=== PATIENT | female | born 1930 | race American Indian/Alaskan Native ===

== ENCOUNTER 2016-10-20 23:06 | Inpatient (IN) | payer MEDICARE, MEDICAID ==
[2016-10-20 23:07] VITALS: BMI 19.5
--- NOTE | 2016-10-20 23:53 | ED PDOC ---
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 Daughter states patient has a chronic sacral ulcer but notes over the last week, patient's sacral wound has been progressively worsening. Daughter states patient has been passing very dark stools and notes a dark liquid coming from the patient's PEG tube today. Daughter also reports patient has been losing weight since her last hospital admission on 08/20/2016. Limited HPI and ROS due to patient's dementia/end-stage Parkinson's disease. PMD: Dr. Gutierrez Symptom Onset: Gradual Symptom Course: Worsening Activities at Onset: Rest, Light Context: Home Past Medical History - Provider Review Nursing Documentation Reviewed: Yes - Infectious Disease Hx of Infectious Diseases: None - Tetanus Immunization Tetanus Immunization: Unknown - Cardiac Hx Cardiac Arrhythmia: Yes (current; atrial fibrillation.) Hx Congestive Heart Failure: Yes Hx Hypertension: Yes Hx Peripheral Edema: No - Pulmonary Hx Pneumonia: Yes (x3) - Neurological Hx Dementia: Yes Hx Parkinson's Disease: Yes Hx Transient Ischemic Attacks (TIA): Yes - HEENT Hx HEENT Disorder: Yes Hx Cataracts: Yes (lt eye) - Renal Hx Renal Disorder: No - Endocrine/Metabolic Hx Endocrine Disorders: No - Hematological/Oncological Hx Blood Transfusions: Yes Hx Blood Transfusion Reaction: No - Integumentary Hx Dermatological Disorder: No - Musculoskeletal/Rheumatological Hx Fractures: Yes (Left Foot Fx; 2000.) Hx Osteoporosis: Yes - Gastrointestinal Hx Pancreatitis: Yes (current.) - Genitourinary/Gynecological Hx Genitourinary Disorders: Yes Hx Incontinence: Yes - Psychiatric Hx Depression: No Hx Substance Use: No - Surgical History Other/Comment: Feeding tube insertion - Anesthesia Hx Anesthesia Reactions: No Hx Malignant Hyperthermia: No - Suicidal Assessment Feels Threatened In Home Enviroment: No Family/Social History - Physician Review Nursing Documentation Reviewed: Yes Family/Social History: No Known Family HX Smoking Status: Never Smoked Hx Alcohol Use: No Hx Substance Use: No Hx Substance Use Treatment: No Allergies/Home Meds Allergies/Adverse Reactions: Allergies Sulfa (Sulfonamide Antibiotics) Allergy (Verified 08/20/16 20:10) SWELLING Home Medications: Home Meds Medication Instructions Recorded Confirmed Ropinirole HCl [Ropinirole ER] 0.5 mg PEG TID 02/13/13 10/21/16 Aspirin [Jordana Chewable Aspirin] 81 mg PEG DAILY 03/26/13 10/21/16 Baclofen [Lioresal] 10 mg PEG TID 02/14/16 10/21/16 cloNIDine [Catapres] 0.1 mg PO BID 08/15/16 10/21/16 Review of Systems - Review of Systems Systems not reviewed;Unavailable: Dementia Constitutional: Weight Change (+weight loss) Gastrointestinal: Other (+dark, tarry stool) Skin: Ulcer (+worsening sacral ulcer) Physical Exam Vital Signs Reviewed: Yes Vital Signs Temp Pulse Resp BP Pulse Ox 10/21/16 05:18 83 17 138/85 99 10/21/16 03:25 97.7 F 83 12 122/74 100 10/21/16 00:27 89 22 120/38 L 97 Temperature: Afebrile Blood Pressure: Normal Pulse: Regular Respiratory Rate: Normal Appearance: Positive for: Non-Toxic, Cachectic Pain Distress: None Mental Status: Positive for: other (Awake, non-communicative) - Systems Exam Head: Present: Atraumatic, Normocephalic Pupils: Present: PERRL Extroacular Muscles: Present: EOMI Conjunctiva: Present: Normal Mouth: Present: Moist Mucous Membranes Respiratory/Chest: Present: Clear to Auscultation, Good Air Exchange. No: Respiratory Distress, Accessory Muscle Use Cardiovascular: Present: Regular Rate and Rhythm, Normal S1, S2. No: Murmurs Abdomen: Present: Normal Bowel Sounds. No: Tenderness, Distention, Peritoneal Signs Rectal: Present: Hemorrhoids (Small non-thrombosed/non-inflamed hemorrhoid), Other (Guaiac negative) Back: Present: Decubitus Ulcer (Infected cavitated sacral ulcer) Upper Extremity: Present: Other (Severe contraction of extremities). No: Cyanosis, Edema Lower Extremity: Present: Other (Severe contraction of extremities). No: Edema Skin: Present: Warm, Dry, Normal Color. No: Rashes Psychiatric: Present: Other (Awake, non-communicative) Medical Decision Making ED Course and Treatment: 10/20/16 23:52 Impression: 86 year old female brought in for worsening sacral wound, dark stools, and weight loss. Differential Diagnosis include but are not limited to: infected sacral wound vs. sepsis Plan: -- Labs, VBG, blood cultures -- Urinalysis, urine cultures -- Wound culture -- Reassess and disposition Prior Visits: Notes and results from previous visits were reviewed. Progress Notes: 10/21/16 03:[address] Barth, covering for Dr. Gutierrez, who is aware and agrees with plan. Pt will be admitted to [facility] for infected sacral decubitus and cellulitis under Dr. Gutierrez' service. Requets Dr. Choudhury and Dr. Chaudhry on consult. - Lab Interpretations Lab Results: 10/21/16 02:40 10/21/16 02:40 Lab Results 10/21/16 02:40: WBC 4.6 D, RBC 2.88 L, Hgb 8.5 L, Hct 26.8 L, MCV 93.1, MCH 29.5, MCHC 31.7, RDW 15.2 H, Plt Count 351, MPV 10.2, pO2 67 H, VBG pH 7.45 H, VBG pCO2 38.0 L, VBG HCO3 26.4, VBG Total CO2 27.6, VBG O2 Sat (Calc) 96.5 H, VBG Base Excess 2.4 H, VBG Potassium 4.2, Glucose 77, Lactate 1.2, FiO2 21.0, Sodium 144.0, Potassium 4.1, Chloride 119.0 H, Carbon Dioxide 25, Anion Gap 13, BUN 20, Creatinine 0.5, Est GFR ( Amer) > 60, Est GFR (Non-Af Amer) > 60 , Random Glucose 76, Calcium 8.9, Total Bilirubin 0.3, AST 21, ALT 24, Alkaline Phosphatase 68, Total Protein 7.1, Albumin 2.9 L, Globulin 4.2, Albumin/ Globulin Ratio 0.7 L, Venous Blood Potassium 4.2 I have reviewed the lab results: Yes - Medication Orders Current Medication Orders: Aspirin (Aspirin Chewable) 81 mg PEG DAILY [facility] Last Admin: 10/21/16 10:00 Dose: 81 MG Baclofen (Lioresal) 10 mg NG TID [facility] Last Admin: 10/21/16 17:45 Dose: 10 MG Clonidine HCl (Catapres) 0.1 mg PO BID [facility] Last Admin: 10/21/16 17:45 Dose: 0.1 MG MAR Pulse and Blood Pressure Document 10/21/16 17:45 MLK (Rec: 10/21/16 17:45 MLK [id number]) Pulse Pulse Rate (60-90) 74 Blood Pressure Blood Pressure (100/60-150/90) 113/71 Collagenase (Santyl) 0 gm TOP BID [facility] Last Admin: 10/21/16 17:45 Dose: 1 APPLIC Vancomycin HCl (Vancomycin 1gm) 250 mls @ 167 mls/hr IVPB Q12 [facility] PRN Reason: Protocol Last Admin: 10/21/16 23:08 Dose: 167 MLS/HR eMAR Start Stop Document 10/21/16 23:08 KTB (Rec: 10/21/16 23:09 KTB [id number]) Intravenous Solution Start Date 10/21/16 Start Time 23:08 End Date 10/22/16 End time 00:38 Total Infusion Time 90 Meropenem 1g/NS 100mL IVPB (Meropenem 1g/Ns 100ml Ivpb) 100 mls @ 100 mls/hr IVPB Q8 [facility] PRN Reason: Protocol Stop: 10/28/16 08:01 Last Admin: 10/21/16 22:25 Dose: 100 MLS/HR eMAR Start Stop Document 10/21/16 22:25 KTB (Rec: 10/21/16 22:25 KTB [id number]) Intravenous Solution Start Date 10/21/16 Start Time 22:25 End Date 10/21/16 End time 23:05 Total Infusion Time 40 Multivitamins/Vitamin C 10 ml/Amino Acids/Electrolytes/Dextrose 2,010 mls @ 83 mls/hr IV .Q24H [facility] Last Admin: 10/21/16 17:47 Dose: 83 MLS/HR eMAR Start Stop Document 10/21/16 17:47 MLK (Rec: 10/21/16 17:48 MLK [id number]) Intravenous Solution Start Date 10/21/16 Start Time 17:47 End Date 10/22/16 End time 17:47 Total Infusion Time 1440 Fat Emulsion Intravenous (Intralipid 20%) 250 mls @ 20.833 mls/hr IV Q24H [facility] Last Admin: 10/21/16 17:47 Dose: 20.833 MLS/HR eMAR Start Stop Document 10/21/16 17:47 MLK (Rec: 10/21/16 17:47 MLK [id number]) Intravenous Solution Start Date 10/21/16 Start Time 17:47 End Date 10/22/16 End time 07:47 Total Infusion Time 840 Multivitamins/Vitamin C (Multi-Delyn Liquid) 15 ml PO DAILY [facility] Last Admin: 10/21/16 10:02 Dose: 15 ML Pantoprazole Sodium (Protonix Inj) 40 mg IVP DAILY [facility] Last Admin: 10/21/16 10:00 Dose: 40 MG IVP Administration Document 10/21/16 10:00 MLK (Rec: 10/21/16 10:00 MLK [id number]) Charges for Administration # of IVP Administrations 1 Ropinirole HCl (Requip) 0.5 mg NG TID [facility] Last Admin: 10/21/16 17:45 Dose: 0.5 MG Silver Sulfadiazine (Silvadene 1% 20 Gm) 0 ea TOP DAILY [facility] Zinc Sulfate (Zinc Sulfate 220 Mg Cap) 220 mg PEG DAILY [facility] Last Admin: 10/21/16 10:00 Dose: 220 MG Discontinued Medications Sodium Chloride (Sodium Chloride 0.9%) 1,000 mls @ 100 mls/hr IV .Q10H [facility] Last Admin: 10/21/16 10:30 Dose: 100 MLS/HR eMAR Start Stop Document 10/21/16 10:30 MLK (Rec: 10/21/16 10:30 MLK [id number]) Intravenous Solution Start Date 10/21/16 Start Time 10:30 End Date 10/21/16 End time 20:30 Total Infusion Time 600 Piperacillin Sod/Tazobactam Sod (Zosyn 3.375 In Ns 100ml) 100 mls @ 200 mls/hr IV Q6 [facility] PRN Reason: Protocol Stop: 10/21/16 12:29 Vancomycin HCl (Vancomycin 1gm) 250 mls @ 133.333 mls/hr IVPB STAT [facility] PRN Reason: Protocol Stop: 10/21/16 04:41 Last Admin: 10/21/16 05:28 Dose: 133.333 MLS/HR eMAR Start Stop Document 10/21/16 05:28 MILLICENT (Rec: 10/21/16 05:29 MILLICENT [facility] [id number]) Intravenous Solution Start Date 10/21/16 Start Time 05:15 Piperacillin Sod/Tazobactam Sod (Zosyn 3.375 In Ns 100ml) 100 mls @ 200 mls/hr IVPB Q6 [facility] PRN Reason: Protocol Stop: 10/21/16 12:29 Last Admin: 10/21/16 06:40 Dose: 200 MLS/HR eMAR Start Stop Document 10/21/16 06:40 RR (Rec: 10/21/16 06:40 RR [facility] [id number]) Intravenous Solution Start Date 10/21/16 Start Time 06:40 End Date 10/21/16 End time 07:10 Total Infusion Time 30 Vancomycin HCl (Vancomycin 1gm) 250 mls @ 167 mls/hr IVPB DAILY [facility] PRN Reason: Protocol Multivitamins/Vitamin C (Theravite Oral Soln) 5 ml PEG DAILY [facility] - Scribe Statement The provider has reviewed the documentation as recorded by the Alina Shah Provider Attestation: All medical record entries made by the Alina were at my direction and personally dictated by me. I have reviewed the chart and agree that the record accurately reflects my personal performance of the history, physical exam, medical decision making, and the department course for this patient. I have also personally directed, reviewed, and agree with the discharge instructions and disposition. Disposition/Present on Arrival - Present on Arrival Any Indicators Present on Arrival: No History of DVT/PE: No History of Uncontrolled Diabetes: No Urinary Catheter: No History of Decub. Ulcer: Yes History Surgical Site Infection Following: None - Disposition Have Diagnosis and Disposition been Completed?: Yes Diagnosis: Sacral decubitus ulcer, Cellulitis Disposition: HOSPITALIZED Disposition Time: 02:50 Patient Problems: Current Active Problems Problem Status Diagnosed Gastrostomy malfunction Acute COPD (chronic obstructive pulmonary disease) Chronic Hypertension Chronic Parkinsons Chronic Condition: GOOD
[2016-10-21 02:56] LABS: HEMATOCRIT 26.8 % (36.0-48.0); MEAN CELL VOLUME 93.1 fL (80.0-105.0); MEAN CORPUSCULAR HEMOGLOBIN 29.5 pg (25.0-35.0); MEAN CORPUSCULAR HGB CONC 31.7 g/dl (31.0-37.0); MEAN PLATELET VOLUME 10.2 fl (7.0-11.0); RED CELL DISTRIBUTION WIDTH 15.2 % (11.5-14.5); WHITE BLOOD COUNT 4.6 10^3/ul (4.5-11.0)
[2016-10-21 03:00] LABS: VENOUS BLOOD GAS BASE EXCESS 2.4 mmol/L (0.0-2.0); VENOUS BLOOD PH 7.45 (7.32-7.43)
[2016-10-21 03:40] LABS: ALB/GLOB RATIO 0.7 (1.1-1.8); ALKALINE PHOSPHATASE 68 U/L (38-133); ALT/SGPT 24 U/L (7-56); AST/SGOT 21 U/L (15-39); BILIRUBIN,TOTAL 0.3 mg/dL (0.2-1.3); BLOOD UREA NITROGEN 20 mg/dL (7-21); CALCIUM 8.9 mg/dL (8.4-10.5); CARBON DIOXIDE 25 mmol/L (21-33); CHLORIDE 111 mmol/L (98-107); GFR AFRICAN-AMERICAN > 60; GLUCOSE,RANDOM 76 mg/dL (70-110); POTASSIUM 4.1 mmol/L (3.6-5.0); SODIUM 145 mmol/L (132-148); TOTAL PROTEIN 7.1 g/dL (5.8-8.3)
--- NOTE | 2016-10-21 04:44 | CP.PCM.PN ---
Subjective - Date & Time of Evaluation Date of Evaluation: 10/21/16 Time of Evaluation: 04:43 - Subjective Subjective: # 22 angiocath was inserted in right forearm when she was in ER bed # 5 at nurse 's request. Dx:Poor venous access. Objective - Vital Signs/Intake and Output Vital Signs (last 24 hours): Temp Pulse Resp BP Pulse Ox 97.7 F 83 12 122/74 100 10/21/16 03:25 10/21/16 03:25 10/21/16 03:25 10/21/16 03:25 10/21/16 03:25 - Medications Medications: Current Medications Sodium Chloride (Sodium Chloride 0.9%) 1,000 mls @ 100 mls/hr IV .Q10H [facility] Piperacillin Sod/Tazobactam Sod (Zosyn 3.375 In Ns 100ml) 100 mls @ 200 mls/hr IV Q6 [facility] PRN Reason: Protocol Stop: 10/21/16 12:29
--- NOTE | 2016-10-21 04:51 | CP.PCM.HP ---
<Natali Strong - Last Filed: 10/21/16 04:42> History of Present Illness - History of Present Illness History of Present Illness: This is a 86Y F with PMH of Parkinson's disease (end-stage) with chronic contractions to all extrmities, HTN, COPD, TIA, Peg tube who came to the ED for diarrhea and weight loss x 1 week. The patient was seen by Dr. Gutierrez during a house call. He did some labs on her a couple weeks ago and she was found to have UTI. She was given Augmentin and Doxycycline and started having diarrhea. It has stopped since she has stopped the medication. Her daughter is at bedside and said she noticed she had "black stuff" coming out of peg tube as well as black stool. Hemeoccult was negative in ED. The patient is non-verbal, but she reports that the patient has not had any fevers, chills, vomiting or appeared SOB. The daughter reports that the patient has a sacral decubitus ulcer , which has been having some yellow pus drain for the past few days. The daughter also says she wants to talk to a dietitian to help find the right nutrition regimen for her mother. PMH: Parkinson's disease (end-stage) with chronic contractions to all extrmities , HTN, COPD, TIA, Peg tube PSH: Peg tube (2007) Home meds: Clonidine, Zinc, ASA 81mg, Baclofen, Ropinerole All: Sulfa SH: Light tobacco use in past, denies alcohol or drug use. Has visiting nurse take care of her FH: Mom and Sister- from CHF Present on Admission - Present on Admission Any Indicators Present on Admission: Yes Decubitus Ulcer Present: Yes Decubitus Ulcer Stage: III Review of Systems - Review of Systems Systems not reviewed;Unavailable: Dementia Past Patient History - Infectious Disease Hx of Infectious Diseases: None - Tetanus Immunizations Tetanus Immunization: Unknown - Past Social History Smoking Status: Former Smoker (light smoking history) Alcohol: None Drugs: Denies Home Situation {Lives}: With Family - CARDIAC Hx Cardia Arrhythmia: Yes (current; atrial fibrillation.) Hx Congestive Heart Failure: Yes Hx Hypertension: Yes Hx Peripheral Edema: No - PULMONARY Hx Pneumonia: Yes (x3) - NEUROLOGICAL Hx Dementia: Yes Hx Parkinson's Disease: Yes Hx Transient Ischemic Attacks (TIA): Yes - HEENT Hx HEENT Problems: Yes Hx Cataracts: Yes (lt eye) - RENAL Hx Chronic Kidney Disease: No - ENDOCRINE/METABOLIC Hx Endocrine Disorders: No - HEMATOLOGICAL/ONCOLOGICAL Hx Blood Transfusions: Yes Hx Blood Transfusion Reaction: No - INTEGUMENTARY Hx Dermatological Problems: No - MUSCULOSKELETAL/RHEUMATOLOGICAL Hx Fractures: Yes (Left Foot Fx; 2000.) Hx Osteoporosis: Yes - GASTROINTESTINAL Hx Pancreatitis: Yes (current.) - GENITOURINARY/GYNECOLOGICAL Hx Genitourinary Disorders: Yes Hx Incontinence: Yes - PSYCHIATRIC Hx Depression: No Hx Substance Use: No - SURGICAL HISTORY Other/Comment: Feeding tube insertion - ANESTHESIA Hx Anesthesia Reactions: No Hx Malignant Hyperthermia: No Meds Allergies/Adverse Reactions: Allergies Allergy/AdvReac Type Severity Reaction Status Date / Time Sulfa (Sulfonamide Allergy SWELLING Verified 08/20/16 20:10 Antibiotics) Physical Exam - Constitutional Appears: Chronically Ill - Head Exam Head Exam: ATRAUMATIC, NORMAL INSPECTION, NORMOCEPHALIC - Eye Exam Eye Exam: Normal appearance Pupil Exam: NORMAL ACCOMODATION - ENT Exam ENT Exam: Mucous Membranes Moist - Neck Exam Neck exam: Positive for: Normal Inspection. Negative for: Tenderness, Thyromegaly - Respiratory Exam Respiratory Exam: Clear to Auscultation Bilateral, NORMAL BREATHING PATTERN. absent: Rales, Rhonchi, Wheezes - Cardiovascular Exam Cardiovascular Exam: REGULAR RHYTHM, +S1, +S2. absent: Gallop, Rubs, Systolic Murmur - GI/Abdominal Exam GI & Abdominal Exam: Hypoactive Bowel Sounds, Soft. absent: Mass, Rebound, Rigid, Tenderness Additional comments: Peg tube in place mild erythema - Extremities Exam Extremities exam: Negative for: calf tenderness, pedal edema Additional comments: Stage I pressure ulcers on bilateral extremities - Back Exam Additional comments: Stage III sacral decubitus ulcer minor drainage - Neurological Exam Additional comments: Contraction of all 4 extremities - Skin Skin Exam: Dry, Normal Color, Rash (perianal rash ), Warm Additional comments: pressure uclers stage I on feet bilaterally Results - Vital Signs Recent Vital Signs: Last Vital Signs Temp 97.7 F 10/21/16 03:25 Pulse 83 10/21/16 03:25 Resp 12 10/21/16 03:25 BP 122/74 10/21/16 03:25 Pulse Ox 100 10/21/16 03:25 - Labs Result Diagrams: 10/21/16 02:40 10/21/16 02:40 Assessment & Plan - Assessment and Plan (Free Text) Assessment: This is an 86Y F with Parkinson's disease (end-stage) with chronic contractions to all extrmities, HTN, COPD, TIA, Peg tube admitted for worsening sacral wound, weight loss, r/o sepsis. Plan: 1. Sacral Wound - Afebrile, no leukocytosis - Blood culture, wound culture, U/A and urine culture pending - Lactate 1.1 - will check PCT - Surgery consulted for debridement - ID consulted - Tylenol prn - Zosyn and Vanco - Continue Santyl on wound and optifoam on pressure ulcers 2. Weight loss - secondary to malfunctioning peg tube versus fluid loss from wound versus low protein diet - NPO except meds - Surgery Consulted- please check peg tube function - Dietitian consulted 3. Anemia - Secondary to blood loss via wound versus GI bleed versus chronic disease - Hemeoccult negative - hgb 8.5, MCV: 93 - continue to monitor CBC, will transfuse if Hgb <7 - will check iron studies, B12, folate 4. HTN - Continue Clonidine 5. Parkinson's disease (end-stage) - Continue Ropinerole and Baclofen GI ppx: PTX DVT ppx: SCDs Case seen, discussed and reviewed with attending Angela Strong PGY1 - Date & Time Date: 10/21/16 Time: 05:19 <Juan M Gutierrez - Last Filed: 11/29/16 08:28> Results - Vital Signs Recent Vital Signs: Last Vital Signs Temp 98.8 F 10/26/16 06:00 Pulse 97 H 10/26/16 09:20 Resp 20 10/26/16 06:00 BP 138/62 10/26/16 09:20 Pulse Ox 100 10/26/16 06:00 - Labs Result Diagrams: 10/26/16 09:20 10/26/16 09:20 Attending/Attestation - Attestation I have personally seen and examined this patient.: Yes I have fully participated in the care of the patient.: Yes I have reviewed all pertinent clinical information: Yes Notes (Text): 11/29/16 08:28 Medical record note made by the resident after discussion with my direction and input after the patient was personally seen and examined by me. I have reviewed the chart and agree that the record reflects my personal performance of history, physical, data review and course for the patient that I have planned.
[2016-10-21] MEDS ORDERED: Sodium Chloride 0.9% 1,000 ML IV SCH (05:15)
[2016-10-21] MEDS: Vancomycin 1gm in NS 250ml 250 ML IVPB STA ×2 (05:28→06:34)
[2016-10-21] MEDS ORDERED: Piperacillin/Tazobact 3.375 gm 100 ML IVPB SCH ×2 (06:00→07:48)
[2016-10-21] MEDS ORDERED: Piperacillin/Tazobact 3.375 gm 100 ML IV SCH (06:00)
[2016-10-21] MEDS: Sodium Chloride 0.9% 1,000 ML IV SCH ×2 (06:33→10:30)
[2016-10-21 07:45] LABS: IRON 32 ug/dL (45-180)
[2016-10-21] MEDS: Meropenem 1g/NS 100mL IVPB 100 ML IVPB SCH ×3 (08:21→22:25)
--- NOTE | 2016-10-21 08:57 | CP.PCM.CON ---
History of Present Illness - History of Present Illness History of Present Illness: General Surgery Consult Note - Dr. Chaudhry Service 86 y/o female with hx of end-stage Parkinson's, chronic contractures to all extremities s/p PEG tube placement (2007), multiple chronic pressure ulcers presenting to the ED with complaints of diarrhea and weight loss. History is limited as the patient is non-verbal. The patient was recently treated for UTI as an outpatient with both Augmentin and Doxycycline. Afterwards the patient developed diarrhea. Patient's daughter reportedly noticed black discharge from the PEG tube as well as black stool. Patient also with reported purulent drainage from chronic pressure ulcers according to daughter. There is no history of recent fever or chills. Surgery is consulted regarding management of multiple ulcerations. PMH: Parkinsons disease, chronic limb contracture, HTN, COPD, TIA PSH: PEG placement - 2007 Allergy: sulfa Review of Systems - Review of Systems Systems not reviewed;Unavailable: Other (patient is nonverbal ) - Constitutional Constitutional: absent: Chills, Fever - Gastrointestinal Gastrointestinal: Diarrhea. absent: Vomiting - Genitourinary Genitourinary: Urinary Incontinence - Integumentary Integumentary: Non-Healing Lesions, Skin Ulcer. absent: Furuncle Past Patient History - Infectious Disease Hx of Infectious Diseases: None - Tetanus Immunizations Tetanus Immunization: Unknown - Past Social History Smoking Status: Never Smoked - CARDIAC Hx Cardia Arrhythmia: Yes (atrial fibrillation.) Hx Congestive Heart Failure: Yes Hx Hypertension: Yes Hx Peripheral Edema: No - PULMONARY Hx Pneumonia: Yes (x3) - NEUROLOGICAL Hx Dementia: Yes Hx Parkinson's Disease: Yes Hx Transient Ischemic Attacks (TIA): Yes - HEENT Hx HEENT Problems: Yes Hx Cataracts: Yes (lt eye) - RENAL Hx Chronic Kidney Disease: No - ENDOCRINE/METABOLIC Hx Endocrine Disorders: No - HEMATOLOGICAL/ONCOLOGICAL Hx Blood Disorders: No - INTEGUMENTARY Hx Dermatological Problems: No - MUSCULOSKELETAL/RHEUMATOLOGICAL Hx Falls: No - GASTROINTESTINAL Hx Pancreatitis: Yes - GENITOURINARY/GYNECOLOGICAL Hx Genitourinary Disorders: Yes Hx Incontinence: Yes - PSYCHIATRIC Hx Depression: No - SURGICAL HISTORY Other/Comment: Feeding tube insertion - ANESTHESIA Hx Anesthesia Reactions: No Hx Malignant Hyperthermia: No Meds Allergies/Adverse Reactions: Allergies Allergy/AdvReac Type Severity Reaction Status Date / Time Sulfa (Sulfonamide Allergy SWELLING Verified 08/20/16 20:10 Antibiotics) - Medications Medications: Current Medications Aspirin (Aspirin Chewable) 81 mg PEG DAILY [facility] Baclofen (Lioresal) 10 mg NG TID [facility] Clonidine HCl (Catapres) 0.1 mg PO BID [facility] Collagenase (Santyl) 0 gm TOP BID [facility] Sodium Chloride (Sodium Chloride 0.9%) 1,000 mls @ 100 mls/hr IV .Q10H [facility] Last Admin: 10/21/16 06:33 Dose: 100 mls/hr Vancomycin HCl (Vancomycin 1gm) 250 mls @ 167 mls/hr IVPB Q12 [facility] PRN Reason: Protocol Meropenem 1g/NS 100mL IVPB (Meropenem 1g/Ns 100ml Ivpb) 100 mls @ 100 mls/hr IVPB Q8 [facility] PRN Reason: Protocol Stop: 10/28/16 08:01 Last Admin: 10/21/16 08:21 Dose: 100 mls/hr Multivitamins/Vitamin C (Theravite Oral Soln) 5 ml PEG DAILY [facility] Pantoprazole Sodium (Protonix Inj) 40 mg IVP DAILY [facility] Ropinirole HCl (Requip) 0.5 mg NG TID [facility] Zinc Sulfate (Zinc Sulfate 220 Mg Cap) 220 mg PEG DAILY [facility] Physical Exam - Constitutional Appears: Non-toxic - Head Exam Head Exam: ATRAUMATIC, NORMOCEPHALIC - Eye Exam Eye Exam: PERRL - ENT Exam ENT Exam: Mucous Membranes Dry - Respiratory Exam Respiratory Exam: Clear to Auscultation Bilateral. absent: Rales, Rhonchi, Wheezes - Cardiovascular Exam Cardiovascular Exam: REGULAR RHYTHM, +S1, +S2 - GI/Abdominal Exam GI & Abdominal Exam: Normal Bowel Sounds, Soft Additional comments: PEG in place. - Extremities Exam Extremities exam: Negative for: calf tenderness, pedal edema Additional comments: contractures to all limbs - Neurological Exam Neurological exam: Alert - Skin Additional comments: multiple chronic pressure ulcerations. Right lateral sacral stage 3 ulceration, no purulent material expressed. Right inguinal ulcer stage 3 without purulent drainage. Right medial thigh ulcer stage 1. Results - Vital Signs Recent Vital Signs: Last Vital Signs Temp 98.3 F 10/21/16 06:41 Pulse 86 10/21/16 06:41 Resp 20 10/21/16 06:41 BP 115/73 10/21/16 06:41 Pulse Ox 100 10/21/16 06:41 - Labs Result Diagrams: 10/21/16 02:40 10/21/16 02:40 Labs: Laboratory Results - last 24 hr 10/21/16 03:00 Iron 32 L TIBC 181 L % Saturation 18 L Assessment & Plan - Assessment and Plan (Free Text) Assessment: 86 y/o female with hx end-stage Parkinsons disease, chronic limb contractures, s /p PEG placement with multiple chronic non-healing wounds. Patient is afebrile. There are 3 significant wounds which include a stage 3 3cm x 3cm right sacral ulceration, a stage 3 2cm x 2cmulceration to right inguinal area as well as a stage 1 right medial thigh ulcer. - patient started on broad spectrum ABx - Merrum q8h - Santyl continued from home - wound care daily - air mattress with frequent position changes - stool studies pending including c-diff - medical management per primary team - d/w Dr. Chaudhry regarding debridement
[2016-10-21] MEDS ORDERED: Vancomycin 1gm in NS 250ml 250 ML IVPB SCH (10:00)
[2016-10-21] MEDS ORDERED: Multivitamin Oral Soln PEG SCH (10:00)
[2016-10-21] MEDS: Multi Vitamins 15 mL UD Oral Solution PO SCH (10:02)
[2016-10-21] MEDS: Collagenase 250 Units/gm Ointment(30 gm) TOP SCH ×2 (10:03→17:45)
[2016-10-21] MEDS: Vancomycin 1gm in NS 250ml 250 ML IVPB SCH ×2 (10:07→23:08)
[2016-10-21 13:57] LABS: URINE BILIRUBIN NEGATIVE (NEGATIVE); URINE BLOOD NEGATIVE (NEGATIVE); URINE GLUCOSE (UA) NEGATIVE (NEGATIVE); URINE KETONE NEGATIVE (NEGATIVE); URINE LEUKOCYTE ESTERASE MODERATE Leu/uL (NEGATIVE); URINE PROTEIN NEGATIVE mg/dL (<30 mg/dL); URINE UROBILINOGEN 0.2 E.U./dL (<1 E.U./dL)
[2016-10-21 14:10] LABS: URINE APPEARANCE CLEAR (CLEAR); URINE COLOR YELLOW (YELLOW)
[2016-10-21 14:13] LABS: URINE BACTERIA MOD (NEG); URINE EPITHELIAL CELLS 0 - 2 /hpf (0-5); URINE RBC NEGATIVE /hpf (0-2)
[2016-10-21 15:12] LABS: FOLATE > 20.0 ng/mL
[2016-10-21] MEDS ORDERED: Fat Emulsion 20% IV 250 ML IV SCH (18:00)
--- NOTE | 2016-10-21 20:52 | CP.PCM.CON ---
History of Present Illness - History of Present Illness History of Present Illness: 86 year old female with PMH of HTN, COPD, CAD, Dementia, Parkinson's disease, history of transient ischemic attack, history of extremity contractures, history of central-line associated blood stream infection with staph aureus was brought in to [facility] because of stuff coming out of the PEG tube as well as black stool. The patient was recently treated for UTI during a house call by the PMD with Augmentin and Doxycycline. She is also noted to have decubitus ulcers oozing yellowish fluid. There is no note of fever or chills, no respiratory distress, no convulsions, no loss of consciousness, no diarrhea. Infectious Diseases consult is requested to further evaluate and manage. Review of Systems - Review of Systems All systems: reviewed and no additional remarkable complaints except (as per HPI ) Past Patient History - Infectious Disease Hx of Infectious Diseases: None - Tetanus Immunizations Tetanus Immunization: Unknown - Past Social History Smoking Status: Never Smoked - CARDIAC Hx Cardia Arrhythmia: Yes (atrial fibrillation.) Hx Congestive Heart Failure: Yes Hx Hypertension: Yes Hx Peripheral Edema: No - PULMONARY Hx Pneumonia: Yes (x3) - NEUROLOGICAL Hx Dementia: Yes Hx Parkinson's Disease: Yes Hx Transient Ischemic Attacks (TIA): Yes - HEENT Hx HEENT Problems: Yes Hx Cataracts: Yes (lt eye) - RENAL Hx Chronic Kidney Disease: No - ENDOCRINE/METABOLIC Hx Endocrine Disorders: No - HEMATOLOGICAL/ONCOLOGICAL Hx Blood Disorders: No - INTEGUMENTARY Hx Dermatological Problems: No - MUSCULOSKELETAL/RHEUMATOLOGICAL Hx Falls: No - GASTROINTESTINAL Hx Pancreatitis: Yes - GENITOURINARY/GYNECOLOGICAL Hx Genitourinary Disorders: Yes Hx Incontinence: Yes - PSYCHIATRIC Hx Depression: No - SURGICAL HISTORY Other/Comment: Feeding tube insertion - ANESTHESIA Hx Anesthesia Reactions: No Hx Malignant Hyperthermia: No Meds Allergies/Adverse Reactions: Allergies Allergy/AdvReac Type Severity Reaction Status Date / Time Sulfa (Sulfonamide Allergy SWELLING Verified 08/20/16 20:10 Antibiotics) - Medications Medications: Current Medications Aspirin (Aspirin Chewable) 81 mg PEG DAILY [facility] Baclofen (Lioresal) 10 mg NG TID [facility] Clonidine HCl (Catapres) 0.1 mg PO BID [facility] Collagenase (Santyl) 0 gm TOP BID [facility] Sodium Chloride (Sodium Chloride 0.9%) 1,000 mls @ 100 mls/hr IV .Q10H [facility] Last Admin: 10/21/16 06:33 Dose: 100 mls/hr Piperacillin Sod/Tazobactam Sod (Zosyn 3.375 In Ns 100ml) 100 mls @ 200 mls/hr IVPB Q6 [facility] PRN Reason: Protocol Stop: 10/21/16 12:29 Last Admin: 10/21/16 06:40 Dose: 200 mls/hr Vancomycin HCl (Vancomycin 1gm) 250 mls @ 167 mls/hr IVPB DAILY [facility] PRN Reason: Protocol Multivitamins/Vitamin C (Theravite Oral Soln) 5 ml PEG DAILY [facility] Pantoprazole Sodium (Protonix Inj) 40 mg IVP DAILY [facility] Ropinirole HCl (Requip) 0.5 mg NG TID [facility] Zinc Sulfate (Zinc Sulfate 220 Mg Cap) 220 mg PEG DAILY [facility] Physical Exam - Constitutional Appears: Non-toxic, No Acute Distress - Head Exam Head Exam: NORMAL INSPECTION - ENT Exam ENT Exam: Mucous Membranes Moist - Neck Exam Neck exam: Negative for: Lymphadenopathy, Meningismus - Respiratory Exam Respiratory Exam: Decreased Breath Sounds - Cardiovascular Exam Cardiovascular Exam: +S1, +S2 - GI/Abdominal Exam GI & Abdominal Exam: Soft. absent: Tenderness Results - Vital Signs Recent Vital Signs: Last Vital Signs Temp 98.3 F 10/21/16 06:41 Pulse 86 10/21/16 06:41 Resp 20 10/21/16 06:41 BP 115/73 10/21/16 06:41 Pulse Ox 100 10/21/16 06:41 - Labs Result Diagrams: 10/21/16 02:40 10/21/16 02:40 Labs: Laboratory Results - last 24 hr 10/21/16 03:00 Iron 32 L TIBC 181 L % Saturation 18 L Assessment & Plan - Assessment and Plan (Free Text) Plan: Assessment probable infected decubitus ulcers, with the right hip area being stage 4 history of infected decubitus ulcers with E. faecalis, E. faecalis and ESBL- producing E. coli toxic-metabolic encephalopathy from acute renal failure and hypernatremia, clinically improving history of methicillin-resistant staph aureus bacteremia which is a line- related infection (i.e. port-a-cath) S/P removal of the port-a-cath history of pancreatitis contractures of the extremities COPD CAD DEmentia HTN PArkinson's disease history of transient ischemic attack S/P PEG tube placement Plan started patient on Vancomycin and Merrem pending blood cx, wound cx, urine cx Will monitor clinically
[2016-10-22 09:13] LABS: ADD MANUAL DIFF? NO
[2016-10-22 09:15] LABS: BASO # 0.03 K/mm3 (0.0-2.0); BASO % 0.8 % (0.0-3.0); EOS # 0.2 (0.0-0.7); EOS % 4.3 % (1.5-5.0); GRAN # 1.68 (1.4-6.5); GRAN % 45.2 % (50.0-68.0); HEMATOCRIT 30.1 % (36.0-48.0); LYMPH # 1.4 (1.2-3.4); LYMPH % 36.8 % (22.0-35.0); MEAN CELL VOLUME 95.6 fL (80.0-105.0); MEAN CORPUSCULAR HEMOGLOBIN 28.3 pg (25.0-35.0); MEAN CORPUSCULAR HGB CONC 29.6 g/dl (31.0-37.0); MEAN PLATELET VOLUME 10.3 fl (7.0-11.0); MONO # 0.5 (0.1-0.6); MONO % 12.9 % (1.0-6.0); PLATELET COUNT 262 10^3/uL (120.0-450.0); RED CELL DISTRIBUTION WIDTH 15.5 % (11.5-14.5); WHITE BLOOD COUNT 3.7 10^3/ul (4.5-11.0)
[2016-10-22 09:29] LABS: ALB/GLOB RATIO 0.7 (1.1-1.8); ALKALINE PHOSPHATASE 52 U/L (38-133); ALT/SGPT 16 U/L (7-56); AST/SGOT 20 U/L (15-39); BILIRUBIN,TOTAL 0.2 mg/dL (0.2-1.3); BLOOD UREA NITROGEN 25 mg/dL (7-21); CALCIUM 8.5 mg/dL (8.4-10.5); CARBON DIOXIDE 19 mmol/L (21-33); CHLORIDE 110 mmol/L (95-110); GFR AFRICAN-AMERICAN > 60; GLUCOSE,RANDOM 195 mg/dL (70-110); POTASSIUM 5.3 mmol/L (3.6-5.0); SODIUM 139 mmol/L (132-148); TOTAL PROTEIN 6.5 g/dL (5.8-8.3)
[2016-10-22] MEDS: Collagenase 250 Units/gm Ointment(30 gm) TOP SCH ×2 (09:37→17:21)
[2016-10-22] MEDS: Multi Vitamins 15 mL UD Oral Solution PO SCH (09:37)
[2016-10-22] MEDS: Vancomycin 1gm in NS 250ml 250 ML IVPB SCH ×2 (09:38→21:54)
[2016-10-22] MEDS: Silver Sulfadiazine 1% Cream (20 gm) TOP SCH (09:38)
--- NOTE | 2016-10-22 10:24 | CP.PCM.CON ---
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 Patient is non-verbal. Chart review and history from daughter stating recent outpatient treatment for UTI with two antibiotics and new onset diarrhea with concern of black stools and dark PEG output on Friday leading to ER presentation. FOBT negative in ER. No further episodes of diarrhea inpatient. Daughter notes flushing tube with vingear and water one week ago to try to clean cumped PEG feeds in tubing. Notes stool color is usually flores. Nursing denies acute events overnight. PEG being used for medication administration. Last PEG exchange due to tube falling out, 12/2015 with 20 [place] citizen gastrostomy tube placed. Last coloonscopy endorsed by daughter to be three years ago and normal. Prior history of colon polyps ten years ago. Family-mother- colon cancer Social- no tobacco, alcohol, illicit drug use [id number] 11/2013, Port-a-cath removal 01/2016 due to Bacteremia, Left PICC line 01/2016 Review of Systems - Review of Systems Review of Systems: A 12-point review of systems negative except for as above Past Patient History - Infectious Disease Hx of Infectious Diseases: None - Tetanus Immunizations Tetanus Immunization: Unknown - Past Social History Smoking Status: Never Smoked - CARDIAC Hx Cardia Arrhythmia: Yes (current; atrial fibrillation.) Hx Congestive Heart Failure: Yes Hx Hypertension: Yes Hx Peripheral Edema: No - PULMONARY Hx Pneumonia: Yes (x3) - NEUROLOGICAL Hx Dementia: Yes Hx Parkinson's Disease: Yes Hx Transient Ischemic Attacks (TIA): Yes - HEENT Hx HEENT Problems: Yes Hx Cataracts: Yes (lt eye) - RENAL Hx Chronic Kidney Disease: No - ENDOCRINE/METABOLIC Hx Endocrine Disorders: No - HEMATOLOGICAL/ONCOLOGICAL Hx Blood Transfusions: Yes Hx Blood Transfusion Reaction: No - INTEGUMENTARY Hx Dermatological Problems: No - MUSCULOSKELETAL/RHEUMATOLOGICAL Hx Fractures: Yes (Left Foot Fx; 2000.) Hx Osteoporosis: Yes - GASTROINTESTINAL Hx Pancreatitis: Yes (current.) - GENITOURINARY/GYNECOLOGICAL Hx Genitourinary Disorders: Yes Hx Incontinence: Yes - PSYCHIATRIC Hx Depression: No Hx Substance Use: No - SURGICAL HISTORY Other/Comment: Feeding tube insertion - ANESTHESIA Hx Anesthesia Reactions: No Hx Malignant Hyperthermia: No Meds Allergies/Adverse Reactions: Allergies Allergy/AdvReac Type Severity Reaction Status Date / Time Sulfa (Sulfonamide Allergy SWELLING Verified 08/20/16 20:10 Antibiotics) - Medications Medications: Current Medications Aspirin (Aspirin Chewable) 81 mg PEG DAILY [facility] Last Admin: 10/22/16 09:37 Dose: 81 mg Baclofen (Lioresal) 10 mg NG TID [facility] Last Admin: 10/22/16 09:37 Dose: 10 mg Clonidine HCl (Catapres) 0.1 mg PO BID [facility] Last Admin: 10/22/16 09:37 Dose: 0.1 mg Collagenase (Santyl) 0 gm TOP BID [facility] Last Admin: 10/22/16 09:37 Dose: 1 applic Vancomycin HCl (Vancomycin 1gm) 250 mls @ 167 mls/hr IVPB Q12 [facility] PRN Reason: Protocol Last Admin: 10/22/16 09:38 Dose: 167 mls/hr Meropenem 1g/NS 100mL IVPB (Meropenem 1g/Ns 100ml Ivpb) 100 mls @ 100 mls/hr IVPB Q8 [facility] PRN Reason: Protocol Stop: 10/28/16 08:01 Last Admin: 10/21/16 22:25 Dose: 100 mls/hr Multivitamins/Vitamin C 10 ml/Amino Acids/Electrolytes/Dextrose 2,010 mls @ 83 mls/hr IV .Q24H [facility] Last Admin: 10/21/16 17:47 Dose: 83 mls/hr Fat Emulsion Intravenous (Intralipid 20%) 250 mls @ 20.833 mls/hr IV Q24H [facility] Last Admin: 10/21/16 17:47 Dose: 20.833 mls/hr Multivitamins/Vitamin C (Multi-Delyn Liquid) 15 ml PO DAILY [facility] Last Admin: 10/22/16 09:37 Dose: 15 ml Pantoprazole Sodium (Protonix Inj) 40 mg IVP DAILY [facility] Last Admin: 10/22/16 09:37 Dose: 40 mg Ropinirole HCl (Requip) 0.5 mg NG TID [facility] Last Admin: 10/22/16 09:37 Dose: 0.5 mg Silver Sulfadiazine (Silvadene 1% 20 Gm) 0 ea TOP DAILY [facility] Last Admin: 10/22/16 09:38 Dose: 1 applic Zinc Sulfate (Zinc Sulfate 220 Mg Cap) 220 mg PEG DAILY [facility] Last Admin: 10/22/16 09:38 Dose: 220 mg Physical Exam - Constitutional Appears: Non-toxic, No Acute Distress, Cachectic, Chronically Ill, Other - Head Exam Head Exam: ATRAUMATIC, NORMOCEPHALIC - Eye Exam Eye Exam: PERRL Pupil Exam: PERRL. absent: Miosis, Mydriatic - ENT Exam ENT Exam: Normal Oropharynx - Neck Exam Neck exam: Positive for: Normal Inspection - Respiratory Exam Respiratory Exam: Clear to Auscultation Bilateral. absent: Rales, Rhonchi, Wheezes - Cardiovascular Exam Cardiovascular Exam: RRR, +S1, +S2. absent: Gallop, Rubs - GI/Abdominal Exam GI & Abdominal Exam: Normal Bowel Sounds, Soft. absent: Distended, Guarding, Organomegaly, Rebound, Rigid, Tenderness Additional comments: LUQ PEG site with green residue from prior medication administration, without erythema or induration; flushes easily with difficult return - Rectal Exam Rectal Exam: absent: Black Stool, Bloody Stool Additional comments: soft dark green stool at rectal vault, no foul odor - Extremities Exam Extremities exam: Negative for: pedal edema Additional comments: chronic B/L UE and LE flexion contractures - Neurological Exam Additional comments: opens eyes to physical stimuli - Psychiatric Exam Additional comments: nonverbal, unable to assess in setting of end-stage Parkinson's disease - Skin Skin Exam: Dry, Normal Color, Warm Additional comments: multiple pressure ulcers Results - Vital Signs Recent Vital Signs: Last Vital Signs Temp 97.2 F L 10/22/16 06:00 Pulse 78 10/22/16 06:00 Resp 20 10/22/16 06:00 BP 125/72 10/22/16 06:00 Pulse Ox 92 L 10/22/16 06:00 - Labs Result Diagrams: 10/22/16 09:00 10/22/16 09:00 Labs: Laboratory Results - last 24 hr 10/21/16 10/21/16 10/21/16 03:00 03:00 13:25 WBC RBC Hgb Hct MCV MCH MCHC RDW Plt Count MPV Gran % Lymph % (Auto) [place] % (Auto) Eos % (Auto) Baso % (Auto) Gran # Lymph # [place] # Eos # Baso # Sodium Potassium Chloride Carbon Dioxide Anion Gap BUN Creatinine Est GFR ( Amer) Est GFR (Non-Af Amer) Random Glucose Calcium Ferritin 383.0 Total Bilirubin AST ALT Alkaline Phosphatase Total Protein Albumin Globulin Albumin/Globulin Ratio Vitamin B12 744 Folate > 20.0 Procalcitonin < 0.05 L Urine Color Yellow Urine Appearance Clear Urine pH 7.0 Ur Specific [place] 1.015 Urine Protein Negative Urine Glucose (UA) Negative Urine Ketones Negative Urine Blood Negative Urine Nitrate Positive H Urine Bilirubin Negative Urine Urobilinogen 0.2 Ur Leukocyte Esterase Moderate H Urine RBC Negative Urine WBC 1 - 3 Ur Epithelial Cells 0 - 2 Urine Bacteria Mod 10/22/16 10/22/16 09:00 09:00 WBC 3.7 L RBC 3.15 L Hgb 8.9 L Hct 30.1 L MCV 95.6 MCH 28.3 MCHC 29.6 L RDW 15.5 H Plt Count 262 MPV 10.3 Gran % 45.2 L Lymph % (Auto) 36.8 H [place] % (Auto) 12.9 H Eos % (Auto) 4.3 Baso % (Auto) 0.8 Gran # 1.68 Lymph # 1.4 [place] # 0.5 Eos # 0.2 Baso # 0.03 Sodium 139 Potassium 5.3 H Chloride 110 Carbon Dioxide 19 L Anion Gap 15 BUN 25 H Creatinine 0.6 Est GFR ( Amer) > 60 Est GFR (Non-Af Amer) > 60 Random Glucose 195 H Calcium 8.5 Ferritin Total Bilirubin 0.2 AST 20 ALT 16 Alkaline Phosphatase 52 Total Protein 6.5 Albumin 2.7 L Globulin 3.8 Albumin/Globulin Ratio 0.7 L Vitamin B12 Folate Procalcitonin Urine Color Urine Appearance Urine pH Ur Specific [place] Urine Protein Urine Glucose (UA) Urine Ketones Urine Blood Urine Nitrate Urine Bilirubin Urine Urobilinogen Ur Leukocyte Esterase Urine RBC Urine WBC Ur Epithelial Cells Urine Bacteria Assessment & Plan - Assessment and Plan (Free Text) Assessment: 86 year old female with history of Hypertension, TIA, COPD, end-stage Parkinson' s disease, 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 Last PEG exchange due to tube falling out, 12/2015 with 20 [place] citizen gastrostomy tube placed. Recent discharge 08/31/16 included PEG site evaluation with saline lavage confirming no signs of GI blood loss to pylorus. Plan: >no signs of overt GI blood loss >FOBT negative in ER >H/H stable, at baseline >continue PPI >PEG site evaluated today- saline lavage- no signs of GI blood loss to pylorus, lavages well >consider Gastrograffin study if concern of PEG malfunction re-occurs >restart Tube feeds, no need for PPN >daughter Tamiko Woodson, [phone]- family wishes of medical management, risks outweigh benefits to undergo anesthesia >further recommendations based on clinical course <Tr Christine - Last Filed: 10/22/16 16:01> Meds - Medications Medications: Current Medications Aspirin (Aspirin Chewable) 81 mg PEG DAILY [facility] Last Admin: 10/22/16 09:37 Dose: 81 mg Baclofen (Lioresal) 10 mg NG TID [facility] Last Admin: 10/22/16 13:11 Dose: 10 mg Clonidine HCl (Catapres) 0.1 mg PO BID [facility] Last Admin: 10/22/16 09:37 Dose: 0.1 mg Collagenase (Santyl) 0 gm TOP BID [facility] Last Admin: 10/22/16 09:37 Dose: 1 applic Vancomycin HCl (Vancomycin 1gm) 250 mls @ 167 mls/hr IVPB Q12 [facility] PRN Reason: Protocol Last Admin: 10/22/16 09:38 Dose: 167 mls/hr Meropenem 1g/NS 100mL IVPB (Meropenem 1g/Ns 100ml Ivpb) 100 mls @ 100 mls/hr IVPB Q8 [facility] PRN Reason: Protocol Stop: 10/28/16 08:01 Last Admin: 10/22/16 13:11 Dose: 100 mls/hr Multivitamins/Vitamin C 10 ml/Amino Acids/Electrolytes/Dextrose 1,010 mls @ 42 mls/hr IV .Q24H [facility] Fat Emulsion Intravenous (Intralipid 20%) 250 mls @ 21 mls/hr IV 1800 [facility] Multivitamins/Vitamin C (Multi-Delyn Liquid) 15 ml PO DAILY [facility] Last Admin: 10/22/16 09:37 Dose: 15 ml Pantoprazole Sodium (Protonix Inj) 40 mg IVP DAILY [facility] Last Admin: 10/22/16 09:37 Dose: 40 mg Ropinirole HCl (Requip) 0.5 mg NG TID [facility] Last Admin: 10/22/16 13:11 Dose: 0.5 mg Silver Sulfadiazine (Silvadene 1% 20 Gm) 0 ea TOP DAILY [facility] Last Admin: 10/22/16 09:38 Dose: 1 applic Zinc Sulfate (Zinc Sulfate 220 Mg Cap) 220 mg PEG DAILY [facility] Last Admin: 10/22/16 09:38 Dose: 220 mg Results - Vital Signs Recent Vital Signs: Last Vital Signs Temp 97.2 F L 10/22/16 06:00 Pulse 78 10/22/16 06:00 Resp 20 10/22/16 06:00 BP 125/72 10/22/16 06:00 Pulse Ox 92 L 10/22/16 06:00 - Labs Result Diagrams: 10/22/16 09:00 10/22/16 09:00 Labs: Laboratory Results - last 24 hr 10/22/16 10/22/16 09:00 09:00 WBC 3.7 L RBC 3.15 L Hgb 8.9 L Hct 30.1 L MCV 95.6 MCH 28.3 MCHC 29.6 L RDW 15.5 H Plt Count 262 MPV 10.3 Gran % 45.2 L Lymph % (Auto) 36.8 H [place] % (Auto) 12.9 H Eos % (Auto) 4.3 Baso % (Auto) 0.8 Gran # 1.68 Lymph # 1.4 [place] # 0.5 Eos # 0.2 Baso # 0.03 Sodium 139 Potassium 5.3 H Chloride 110 Carbon Dioxide 19 L Anion Gap 15 BUN 25 H Creatinine 0.6 Est GFR ( Amer) > 60 Est GFR (Non-Af Amer) > 60 Random Glucose 195 H Calcium 8.5 Total Bilirubin 0.2 AST 20 ALT 16 Alkaline Phosphatase 52 Total Protein 6.5 Albumin 2.7 L Globulin 3.8 Albumin/Globulin Ratio 0.7 L Attending/Attestation - Attestation I have personally seen and examined this patient.: Yes I have fully participated in the care of the patient.: Yes I have reviewed all pertinent clinical information: Yes Notes (Text): 10/22/16 15:58 86 year old female with history of HTN, TIA, COPD, end-stage Parkinson's disease , contractures, dysphagia s/p PEG, multiple pressure ulcers complicated by infection, recurrent UTIs admitted with diarrhea. Also questionable PEG tube malfunction. 1. Diarrhea 2. PEG tube malfunction Plan: -diarrhea in the setting of antibiotic use -need to r/o infectious etiology including C. diff -supportive care with hydration -PEG tube evaluated at bedside, functioning normally, ok to restart tube feedings -no signs of bleeding / hgb stable / fobt negative
--- NOTE | 2016-10-22 11:13 | PN ---
DATE: 10/22/2016 The patient is stable. The wounds are being treated appropriately. I believe this is an appropriate candidate for hospice, although I doubt the family is willing. Cesar Chaudhry MD cc: [id number] TT: 10/22/2016 11:12:52 Confirmation # [id number] Dictation # [id number] rhea
--- NOTE | 2016-10-22 12:38 | CP.PCM.PN ---
Subjective - Date & Time of Evaluation Date of Evaluation: 10/22/16 Time of Evaluation: 09:00 - Subjective Subjective: Patient seen and evaluated at bedside. Patient remains afebrile. Soft tissue wounds are cleaned and dressed and without purulent drainage. There were no acute events overnight. Objective - Vital Signs/Intake and Output Vital Signs (last 24 hours): Temp Pulse Resp BP Pulse Ox 97.2 F L 78 20 125/72 92 L 10/22/16 06:00 10/22/16 06:00 10/22/16 06:00 10/22/16 06:00 10/22/16 06:00 Intake and Output: 10/22/16 10/22/16 06:59 18:59 Intake Total 0 Output Total 400 Balance -400 - Medications Medications: Current Medications Aspirin (Aspirin Chewable) 81 mg PEG DAILY [facility] Last Admin: 10/22/16 09:37 Dose: 81 mg Baclofen (Lioresal) 10 mg NG TID [facility] Last Admin: 10/22/16 09:37 Dose: 10 mg Clonidine HCl (Catapres) 0.1 mg PO BID [facility] Last Admin: 10/22/16 09:37 Dose: 0.1 mg Collagenase (Santyl) 0 gm TOP BID [facility] Last Admin: 10/22/16 09:37 Dose: 1 applic Vancomycin HCl (Vancomycin 1gm) 250 mls @ 167 mls/hr IVPB Q12 [facility] PRN Reason: Protocol Last Admin: 10/22/16 09:38 Dose: 167 mls/hr Meropenem 1g/NS 100mL IVPB (Meropenem 1g/Ns 100ml Ivpb) 100 mls @ 100 mls/hr IVPB Q8 [facility] PRN Reason: Protocol Stop: 10/28/16 08:01 Last Admin: 10/21/16 22:25 Dose: 100 mls/hr Multivitamins/Vitamin C 10 ml/Amino Acids/Electrolytes/Dextrose 2,010 mls @ 83 mls/hr IV .Q24H [facility] Last Admin: 10/21/16 17:47 Dose: 83 mls/hr Fat Emulsion Intravenous (Intralipid 20%) 250 mls @ 20.833 mls/hr IV Q24H [facility] Last Admin: 10/21/16 17:47 Dose: 20.833 mls/hr Multivitamins/Vitamin C (Multi-Delyn Liquid) 15 ml PO DAILY [facility] Last Admin: 10/22/16 09:37 Dose: 15 ml Pantoprazole Sodium (Protonix Inj) 40 mg IVP DAILY [facility] Last Admin: 10/22/16 09:37 Dose: 40 mg Ropinirole HCl (Requip) 0.5 mg NG TID [facility] Last Admin: 10/22/16 09:37 Dose: 0.5 mg Silver Sulfadiazine (Silvadene 1% 20 Gm) 0 ea TOP DAILY [facility] Last Admin: 10/22/16 09:38 Dose: 1 applic Zinc Sulfate (Zinc Sulfate 220 Mg Cap) 220 mg PEG DAILY [facility] Last Admin: 10/22/16 09:38 Dose: 220 mg - Labs Labs: 10/22/16 09:00 10/22/16 09:00 - Constitutional Appears: Non-toxic, No Acute Distress - Head Exam Head Exam: ATRAUMATIC, NORMOCEPHALIC - Eye Exam Eye Exam: PERRL - ENT Exam ENT Exam: Mucous Membranes Moist - Neck Exam Neck Exam: Normal Inspection - Respiratory Exam Respiratory Exam: Clear to Ausculation Bilateral. absent: Rales, Rhonchi, Wheezes - Cardiovascular Exam Cardiovascular Exam: REGULAR RHYTHM, +S1, +S2 - GI/Abdominal Exam GI & Abdominal Exam: Soft, Normal Bowel Sounds. absent: Distended - Neurological Exam Neurological Exam: Awake Additional comments: Contractures to all limbs - Skin Skin Exam: Normal Color, Warm Additional comments: 3 cm x 3cm sacral ulceration stage 3. 2cm x2cm right inguinal ulceration stage 3. 1cm x 2cm ulceration right medial thigh stage 1. Assessment and Plan - Assessment and Plan (Free Text) Assessment: 86 y/o female with hx end-stage Parkinsons disease, chronic limb contractures, s /p PEG placement with multiple chronic non-healing wounds. Patient is afebrile. There are 3 significant wounds which include a stage 3 3cm x 3cm right sacral ulceration, a stage 3 2cm x 2cmulceration to right inguinal area as well as a stage 1 right medial thigh ulcer. - continue wound management with Santyl, dressing changes - air bed with frequent position changes - Meropenem day #2 per ID - no surgical debridement at this time
[2016-10-22] MEDS: Meropenem 1g/NS 100mL IVPB 100 ML IVPB SCH ×2 (13:11→21:53)
--- NOTE | 2016-10-22 13:46 | CP.PCM.PN ---
<Eder Pineda - Last Filed: 10/22/16 18:11> Subjective - Date & Time of Evaluation Date of Evaluation: 10/22/16 Time of Evaluation: 13:43 - Subjective Subjective: Medicine progress note - Eder Pineda PGY1 Patient seen and examined at bedside this morning. No acute overnight events per nursing staff. Patient evaluated by GI today and is cleared to restart tube feeds. ROS limited due to patient status. Objective - Vital Signs/Intake and Output Vital Signs (last 24 hours): Temp Pulse Resp BP Pulse Ox 97.2 F L 78 20 125/72 92 L 10/22/16 06:00 10/22/16 06:00 10/22/16 06:00 10/22/16 06:00 10/22/16 06:00 Intake and Output: 10/22/16 10/22/16 06:59 18:59 Intake Total 0 Output Total 400 Balance -400 - Medications Medications: Current Medications Aspirin (Aspirin Chewable) 81 mg PEG DAILY [facility] Last Admin: 10/22/16 09:37 Dose: 81 mg Baclofen (Lioresal) 10 mg NG TID [facility] Last Admin: 10/22/16 13:11 Dose: 10 mg Clonidine HCl (Catapres) 0.1 mg PO BID [facility] Last Admin: 10/22/16 09:37 Dose: 0.1 mg Collagenase (Santyl) 0 gm TOP BID [facility] Last Admin: 10/22/16 09:37 Dose: 1 applic Vancomycin HCl (Vancomycin 1gm) 250 mls @ 167 mls/hr IVPB Q12 [facility] PRN Reason: Protocol Last Admin: 10/22/16 09:38 Dose: 167 mls/hr Meropenem 1g/NS 100mL IVPB (Meropenem 1g/Ns 100ml Ivpb) 100 mls @ 100 mls/hr IVPB Q8 [facility] PRN Reason: Protocol Stop: 10/28/16 08:01 Last Admin: 10/22/16 13:11 Dose: 100 mls/hr Fat Emulsion Intravenous (Intralipid 20%) 250 mls @ 20.833 mls/hr IV Q24H [facility] Last Admin: 10/21/16 17:47 Dose: 20.833 mls/hr Multivitamins/Vitamin C 10 ml/Amino Acids/Electrolytes/Dextrose 2,010 mls @ 40 mls/hr IV .Q24H [facility] Multivitamins/Vitamin C (Multi-Delyn Liquid) 15 ml PO DAILY [facility] Last Admin: 10/22/16 09:37 Dose: 15 ml Pantoprazole Sodium (Protonix Inj) 40 mg IVP DAILY [facility] Last Admin: 10/22/16 09:37 Dose: 40 mg Ropinirole HCl (Requip) 0.5 mg NG TID [facility] Last Admin: 10/22/16 13:11 Dose: 0.5 mg Silver Sulfadiazine (Silvadene 1% 20 Gm) 0 ea TOP DAILY [facility] Last Admin: 10/22/16 09:38 Dose: 1 applic Zinc Sulfate (Zinc Sulfate 220 Mg Cap) 220 mg PEG DAILY [facility] Last Admin: 10/22/16 09:38 Dose: 220 mg - Labs Labs: 10/22/16 09:00 10/22/16 09:00 - Constitutional Appears: No Acute Distress - Head Exam Head Exam: ATRAUMATIC, NORMOCEPHALIC - ENT Exam ENT Exam: Mucous Membranes Dry - Respiratory Exam Respiratory Exam: Clear to Ausculation Bilateral. absent: Rales, Rhonchi, Wheezes - Cardiovascular Exam Cardiovascular Exam: RRR, +S1, +S2, Murmur. absent: Gallop, Rubs - GI/Abdominal Exam GI & Abdominal Exam: Soft. absent: Distended, Firm, Rigid Additional comments: peg tube - Extremities Exam Additional comments: bilateral upper and lower extremities contracted - Neurological Exam Neurological Exam: Awake. 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 Sacral Wound - Afebrile, no leukocytosis - Pending: Blood, urine and wound cultures - Lactate 1.1 - Air mattress - Continue Santyl on wound and optifoam on pressure ulcers - ID consulted - Dr. Choudhury - Surgery consulted - Dr. Chaudhry 2. Weight loss - PEG tube evaluated by GI; Functioning appropriately - Tube feeds resumed - Dietitian consulted 3. Anemia - No overt signs of blood loss - No signs of upper GI bleed up to the pylorus as per GI - Hemoccult negative - hgb 8.5, MCV: 93 - continue to monitor CBC, will transfuse if Hgb <7 4. HTN - Continue Clonidine 5. Parkinson's disease (end-stage) - Continue Ropinerole and Baclofen GI ppx: PTX DVT ppx: SCDs Case discussed with attending, Dr. Gutierrez <Juan M Gutierrez - Last Filed: 11/29/16 08:29> Objective - Vital Signs/Intake and Output Vital Signs (last 24 hours): Temp Pulse Resp BP Pulse Ox 98.8 F 97 H 20 138/62 100 10/26/16 06:00 10/26/16 09:20 10/26/16 06:00 10/26/16 09:20 10/26/16 06:00 - Labs Labs: 10/26/16 09:20 10/26/16 09:20 Attending/Attestation - Attestation I have personally seen and examined this patient.: Yes I have fully participated in the care of the patient.: Yes I have reviewed all pertinent clinical information, including history, physical exam and plan: Yes Notes (Text): 11/29/16 08:29 Medical record note made by the resident after discussion with my direction and input after the patient was personally seen and examined by me. I have reviewed the chart and agree that the record reflects my personal performance of history, physical, data review and course for the patient that I have planned.
[2016-10-22] MEDS: Fat Emulsion 20% IV 250 ML IV SCH (17:44)
--- NOTE | 2016-10-22 20:40 | CP.PCM.PN ---
Subjective - Date & Time of Evaluation Date of Evaluation: 10/22/16 Time of Evaluation: 12:25 - Subjective Subjective: Comfortable, afebrile, not in distress. Objective - Vital Signs/Intake and Output Vital Signs (last 24 hours): Temp Pulse Resp BP Pulse Ox 97.4 F L 77 20 141/69 100 10/22/16 16:00 10/22/16 16:00 10/22/16 16:00 10/22/16 16:00 10/22/16 16:00 Intake and Output: 10/22/16 10/23/16 18:59 06:59 Intake Total 0 Output Total 650 Balance -650 - Medications Medications: Current Medications Aspirin (Aspirin Chewable) 81 mg PEG DAILY [facility] Last Admin: 10/22/16 09:37 Dose: 81 mg Baclofen (Lioresal) 10 mg NG TID [facility] Last Admin: 10/22/16 17:21 Dose: 10 mg Clonidine HCl (Catapres) 0.1 mg PO BID [facility] Last Admin: 10/22/16 17:21 Dose: 0.1 mg Collagenase (Santyl) 0 gm TOP BID [facility] Last Admin: 10/22/16 17:21 Dose: 1 applic Vancomycin HCl (Vancomycin 1gm) 250 mls @ 167 mls/hr IVPB Q12 [facility] PRN Reason: Protocol Last Admin: 10/22/16 09:38 Dose: 167 mls/hr Meropenem 1g/NS 100mL IVPB (Meropenem 1g/Ns 100ml Ivpb) 100 mls @ 100 mls/hr IVPB Q8 [facility] PRN Reason: Protocol Stop: 10/28/16 08:01 Last Admin: 10/22/16 13:11 Dose: 100 mls/hr Multivitamins/Vitamin C 10 ml/Amino Acids/Electrolytes/Dextrose 1,010 mls @ 42 mls/hr IV .Q24H [facility] Last Admin: 10/22/16 17:44 Dose: 42 mls/hr Fat Emulsion Intravenous (Intralipid 20%) 250 mls @ 21 mls/hr IV 1800 [facility] Last Admin: 10/22/16 17:44 Dose: 21 mls/hr Multivitamins/Vitamin C (Multi-Delyn Liquid) 15 ml PO DAILY [facility] Last Admin: 10/22/16 09:37 Dose: 15 ml Pantoprazole Sodium (Protonix Inj) 40 mg IVP DAILY [facility] Last Admin: 10/22/16 09:37 Dose: 40 mg Ropinirole HCl (Requip) 0.5 mg NG TID [facility] Last Admin: 10/22/16 17:21 Dose: 0.5 mg Silver Sulfadiazine (Silvadene 1% 20 Gm) 0 ea TOP DAILY [facility] Last Admin: 10/22/16 09:38 Dose: 1 applic Zinc Sulfate (Zinc Sulfate 220 Mg Cap) 220 mg PEG DAILY [facility] Last Admin: 10/22/16 09:38 Dose: 220 mg - Labs Labs: 10/22/16 09:00 10/22/16 09:00 - Constitutional Appears: Non-toxic, No Acute Distress - Head Exam Head Exam: NORMAL INSPECTION - ENT Exam ENT Exam: Mucous Membranes Moist - Neck Exam Neck Exam: absent: Lymphadenopathy, Meningismus - Respiratory Exam Respiratory Exam: Decreased Breath Sounds - Cardiovascular Exam Cardiovascular Exam: +S1, +S2 - GI/Abdominal Exam GI & Abdominal Exam: Soft. absent: Tenderness Assessment and Plan - Assessment and Plan (Free Text) Plan: Assessment probable infected decubitus ulcers, with the right hip area being stage 4, with associated gram positive cocci bacteremia history of infected decubitus ulcers with E. faecalis, E. faecalis and ESBL- producing E. coli toxic-metabolic encephalopathy from acute renal failure and hypernatremia, clinically improving history of methicillin-resistant staph aureus bacteremia which is a line- related infection (i.e. port-a-cath) S/P removal of the port-a-cath history of pancreatitis contractures of the extremities COPD CAD DEmentia HTN PArkinson's disease history of transient ischemic attack S/P PEG tube placement Plan started patient on Vancomycin and Merrem day 2 pending identification and sensitivities of the gram positive cocci in the blood - will repeat blood cx tomorrow follow up surgery recommendations and plan Will continue to monitor clinically
[2016-10-23] MEDS: Meropenem 1g/NS 100mL IVPB 100 ML IVPB SCH ×3 (05:25→23:09)
--- NOTE | 2016-10-23 08:11 | CP.PCM.PN ---
Subjective - Date & Time of Evaluation Date of Evaluation: 10/23/16 Time of Evaluation: 08:07 - Subjective Subjective: Patient seen and evaluated at bedside. No acute events overnight. Patient remains afebrile. Wounds are cleaned and dressed, healing appropriately. Objective - Vital Signs/Intake and Output Vital Signs (last 24 hours): Temp Pulse Resp BP Pulse Ox 97.4 F L 77 20 141/69 100 10/22/16 16:00 10/22/16 16:00 10/22/16 16:00 10/22/16 16:00 10/22/16 16:00 Intake and Output: 10/23/16 10/23/16 06:59 18:59 Intake Total 1390 Output Total 1000 Balance 390 - Medications Medications: Current Medications Aspirin (Aspirin Chewable) 81 mg PEG DAILY [facility] Last Admin: 10/22/16 09:37 Dose: 81 mg Baclofen (Lioresal) 10 mg NG TID [facility] Last Admin: 10/22/16 17:21 Dose: 10 mg Clonidine HCl (Catapres) 0.1 mg PO BID [facility] Last Admin: 10/22/16 17:21 Dose: 0.1 mg Collagenase (Santyl) 0 gm TOP BID [facility] Last Admin: 10/22/16 17:21 Dose: 1 applic Vancomycin HCl (Vancomycin 1gm) 250 mls @ 167 mls/hr IVPB Q12 [facility] PRN Reason: Protocol Last Admin: 10/22/16 21:54 Dose: 167 mls/hr Meropenem 1g/NS 100mL IVPB (Meropenem 1g/Ns 100ml Ivpb) 100 mls @ 100 mls/hr IVPB Q8 [facility] PRN Reason: Protocol Stop: 10/28/16 08:01 Last Admin: 10/23/16 05:25 Dose: 100 mls/hr Multivitamins/Vitamin C 10 ml/Amino Acids/Electrolytes/Dextrose 1,010 mls @ 42 mls/hr IV .Q24H [facility] Last Admin: 10/22/16 17:44 Dose: 42 mls/hr Fat Emulsion Intravenous (Intralipid 20%) 250 mls @ 21 mls/hr IV 1800 [facility] Last Admin: 10/22/16 17:44 Dose: 21 mls/hr Multivitamins/Vitamin C (Multi-Delyn Liquid) 15 ml PO DAILY [facility] Last Admin: 10/22/16 09:37 Dose: 15 ml Pantoprazole Sodium (Protonix Inj) 40 mg IVP DAILY [facility] Last Admin: 10/22/16 09:37 Dose: 40 mg Ropinirole HCl (Requip) 0.5 mg NG TID [facility] Last Admin: 10/22/16 17:21 Dose: 0.5 mg Silver Sulfadiazine (Silvadene 1% 20 Gm) 0 ea TOP DAILY [facility] Last Admin: 10/22/16 09:38 Dose: 1 applic Zinc Sulfate (Zinc Sulfate 220 Mg Cap) 220 mg PEG DAILY [facility] Last Admin: 10/22/16 09:38 Dose: 220 mg - Labs Labs: 10/22/16 09:00 10/22/16 09:00 - Constitutional Appears: Non-toxic, No Acute Distress - Head Exam Head Exam: ATRAUMATIC, NORMOCEPHALIC - Eye Exam Eye Exam: PERRL - ENT Exam ENT Exam: Mucous Membranes Moist - Neck Exam Neck Exam: Full ROM, Normal Inspection - Respiratory Exam Respiratory Exam: Clear to Ausculation Bilateral. absent: Rales, Rhonchi, Wheezes - Cardiovascular Exam Cardiovascular Exam: REGULAR RHYTHM, +S1, +S2 - GI/Abdominal Exam GI & Abdominal Exam: Soft, Normal Bowel Sounds. absent: Tenderness - Extremities Exam Extremities Exam: absent: Full ROM (contractions to all extremiities) - Neurological Exam Neurological Exam: Alert - Skin Skin Exam: Warm Additional comments: 3 cm x3 cm stage 3 ulceration to sacrum. 2cm x 2cm stage 3 ulceration right inguinal region. 1cm x 1cm stage 1 ulceration right medial thigh Assessment and Plan - Assessment and Plan (Free Text) Assessment: 86 y/o female with hx end-stage Parkinsons disease, chronic limb contractures, s /p PEG placement with multiple chronic non-healing wounds. Patient is afebrile. There are 3 significant wounds which include a stage 3 3cm x 3cm right sacral ulceration, a stage 3 2cm x 2cmulceration to right inguinal area as well as a stage 1 right medial thigh ulcer. - continue wound management with Santyl, Silvadene dressing changes - air bed with frequent position changes - Meropenem, Vancomycin day #3 per ID - no surgical debridement at this time
[2016-10-23] MEDS: Silver Sulfadiazine 1% Cream (20 gm) TOP SCH (09:00)
[2016-10-23] MEDS: Collagenase 250 Units/gm Ointment(30 gm) TOP SCH ×2 (09:00→18:13)
[2016-10-23 09:18] LABS: BASO # 0.02 K/mm3 (0.0-2.0); BASO % 0.7 % (0.0-3.0); EOS # 0.2 (0.0-0.7); EOS % 5.2 % (1.5-5.0); GRAN # 1.23 (1.4-6.5); GRAN % 42.6 % (50.0-68.0); HEMATOCRIT 27.8 % (36.0-48.0); LYMPH # 1.2 (1.2-3.4); LYMPH % 40.8 % (22.0-35.0); MEAN CELL VOLUME 91.7 fL (80.0-105.0); MEAN CORPUSCULAR HGB CONC 31.7 g/dl (31.0-37.0); MEAN PLATELET VOLUME 10.3 fl (7.0-11.0); MONO # 0.3 (0.1-0.6); MONO % 10.7 % (1.0-6.0); PLATELET COUNT 279 10^3/uL (120.0-450.0); RED CELL DISTRIBUTION WIDTH 15.3 % (11.5-14.5)
[2016-10-23 09:25] LABS: ALB/GLOB RATIO 0.7 (1.1-1.8); ALKALINE PHOSPHATASE 67 U/L (38-133); ALT/SGPT 18 U/L (7-56); AST/SGOT 22 U/L (15-39); BILIRUBIN,TOTAL 0.2 mg/dL (0.2-1.3); BLOOD UREA NITROGEN 24 mg/dL (7-21); CALCIUM 8.7 mg/dL (8.4-10.5); CARBON DIOXIDE 22 mmol/L (21-33); CHLORIDE 111 mmol/L (95-110); GFR AFRICAN-AMERICAN > 60; GLUCOSE,RANDOM 159 mg/dL (70-110); POTASSIUM 4.1 mmol/L (3.6-5.0); SODIUM 141 mmol/L (132-148); TOTAL PROTEIN 6.8 g/dL (5.8-8.3)
[2016-10-23 09:26] LABS: ADD MANUAL DIFF? NO; WHITE BLOOD COUNT 2.9 10^3/ul (4.5-11.0)
[2016-10-23] MEDS: Multi Vitamins 15 mL UD Oral Solution PO SCH (10:34)
[2016-10-23] MEDS: Vancomycin 1gm in NS 250ml 250 ML IVPB SCH ×2 (11:46→23:10)
--- NOTE | 2016-10-23 12:48 | CP.PCM.PN ---
<Adelia Grijalva - Last Filed: 10/23/16 16:04> Subjective - Date & Time of Evaluation Date of Evaluation: 10/23/16 Time of Evaluation: 12:45 - Subjective Subjective: Gastroenterology Fellow/PGY4 Progress Note Patient with incomprehensible verbal sounds to verbal stimuli. Nursing denies acute events overnight. Tolerating tube feeds with minimal residuals. Unable to complete a 12-point review of systems due to end-stage Parkinson's disease. Objective - Vital Signs/Intake and Output Vital Signs (last 24 hours): Temp Pulse Resp BP Pulse Ox 98.4 F 87 20 119/60 99 10/23/16 07:00 10/23/16 07:00 10/23/16 07:00 10/23/16 10:34 10/23/16 07:00 Intake and Output: 10/23/16 10/23/16 06:59 18:59 Intake Total 1390 Output Total 1000 Balance 390 - Medications Medications: Current Medications Aspirin (Aspirin Chewable) 81 mg PEG DAILY [facility] Last Admin: 10/23/16 10:33 Dose: 81 mg Baclofen (Lioresal) 10 mg NG TID [facility] Last Admin: 10/23/16 10:34 Dose: 10 mg Clonidine HCl (Catapres) 0.1 mg PO BID [facility] Last Admin: 10/23/16 10:34 Dose: 0.1 mg Collagenase (Santyl) 0 gm TOP BID [facility] Last Admin: 10/23/16 09:00 Dose: 1 applic Vancomycin HCl (Vancomycin 1gm) 250 mls @ 167 mls/hr IVPB Q12 [facility] PRN Reason: Protocol Last Admin: 10/23/16 11:46 Dose: 167 mls/hr Meropenem 1g/NS 100mL IVPB (Meropenem 1g/Ns 100ml Ivpb) 100 mls @ 100 mls/hr IVPB Q8 [facility] PRN Reason: Protocol Stop: 10/28/16 08:01 Last Admin: 10/23/16 05:25 Dose: 100 mls/hr Multivitamins/Vitamin C 10 ml/Amino Acids/Electrolytes/Dextrose 1,010 mls @ 42 mls/hr IV .Q24H [facility] Last Admin: 10/22/16 17:44 Dose: 42 mls/hr Fat Emulsion Intravenous (Intralipid 20%) 250 mls @ 21 mls/hr IV 1800 [facility] Last Admin: 10/22/16 17:44 Dose: 21 mls/hr Multivitamins/Vitamin C (Multi-Delyn Liquid) 15 ml PO DAILY [facility] Last Admin: 10/23/16 10:34 Dose: 15 ml Pantoprazole Sodium (Protonix Inj) 40 mg IVP DAILY [facility] Last Admin: 10/23/16 10:34 Dose: 40 mg Ropinirole HCl (Requip) 0.5 mg NG TID [facility] Last Admin: 10/23/16 10:33 Dose: 0.5 mg Silver Sulfadiazine (Silvadene 1% 20 Gm) 0 ea TOP DAILY [facility] Last Admin: 10/23/16 09:00 Dose: 1 applic Zinc Sulfate (Zinc Sulfate 220 Mg Cap) 220 mg PEG DAILY [facility] Last Admin: 10/23/16 10:34 Dose: 220 mg - Labs Labs: 10/23/16 09:11 10/23/16 09:11 - Constitutional Appears: Non-toxic, No Acute Distress, Cachectic, Chronically Ill - Head Exam Head Exam: ATRAUMATIC, NORMOCEPHALIC - Eye Exam Eye Exam: EOMI, PERRL Pupil Exam: PERRL. absent: Miosis, Mydriatic - ENT Exam ENT Exam: Mucous Membranes Moist, Normal Oropharynx - Neck Exam Neck Exam: Full ROM, Normal Inspection - Respiratory Exam Respiratory Exam: Clear to Ausculation Bilateral. absent: Rales, Rhonchi, Wheezes - Cardiovascular Exam Cardiovascular Exam: RRR, +S1, +S2. absent: Gallop, Rubs - GI/Abdominal Exam GI & Abdominal Exam: Soft, Normal Bowel Sounds. absent: Distended, Firm, Guarding, Rigid, Tenderness, Organomegaly, Rebound Additional comments: LUQ PEG site C/D/I - Extremities Exam Extremities Exam: absent: Pedal Edema Additional comments: chronic B/L UE and LE contractures - Neurological Exam Neurological Exam: Awake - Psychiatric Exam Additional comments: unable to assess in setting of nonverbal state with end-stage parkinson's disease - Skin Skin Exam: Dry, Intact, Normal Color, Warm Assessment and Plan - Assessment and Plan (Free Text) Assessment: 86 year old female with history of Hypertension, TIA, COPD, end-stage Parkinson' s disease, 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 Last PEG exchange due to tube falling out, 12/2015 with 20 faroese gastrostomy tube placed. Recent discharge 08/31/16 included PEG site evaluation with saline lavage confirming no signs of GI blood loss to pylorus. Plan: >GPC bacteremia, GNR UTI, K. pneum/E. faec sacral wound infection >on vancomycin and Merrem >no signs of overt GI blood loss >H/H stable, at baseline >continue PPI >PEG functioning well >continue tube feeds >thank you for opportunity to participate in the care of this patient. Please contact with questions or concerns <Manuela Patel MD - Last Filed: 10/23/16 17:37> Objective - Vital Signs/Intake and Output Vital Signs (last 24 hours): Temp Pulse Resp BP Pulse Ox 98.4 F 87 20 119/60 99 10/23/16 07:00 10/23/16 07:00 10/23/16 07:00 10/23/16 10:34 10/23/16 07:00 Intake and Output: 10/23/16 10/23/16 06:59 18:59 Intake Total 1390 0 Output Total 1000 300 Balance 390 -300 - Medications Medications: Current Medications Aspirin (Aspirin Chewable) 81 mg PEG DAILY [facility] Last Admin: 10/23/16 10:33 Dose: 81 mg Baclofen (Lioresal) 10 mg NG TID [facility] Last Admin: 10/23/16 14:29 Dose: 10 mg Clonidine HCl (Catapres) 0.1 mg PO BID [facility] Last Admin: 10/23/16 10:34 Dose: 0.1 mg Collagenase (Santyl) 0 gm TOP BID [facility] Last Admin: 10/23/16 09:00 Dose: 1 applic Vancomycin HCl (Vancomycin 1gm) 250 mls @ 167 mls/hr IVPB Q12 [facility] PRN Reason: Protocol Last Admin: 10/23/16 11:46 Dose: 167 mls/hr Meropenem 1g/NS 100mL IVPB (Meropenem 1g/Ns 100ml Ivpb) 100 mls @ 100 mls/hr IVPB Q8 [facility] PRN Reason: Protocol Stop: 10/28/16 08:01 Last Admin: 10/23/16 14:30 Dose: 100 mls/hr Fat Emulsion Intravenous (Intralipid 20%) 250 mls @ 21 mls/hr IV 1800 [facility] Last Admin: 10/22/16 17:44 Dose: 21 mls/hr Multivitamins/Vitamin C 10 ml/ (Amino Acids) 1,010 mls @ 20 mls/hr IV .Q24H [facility] Multivitamins/Vitamin C (Multi-Delyn Liquid) 15 ml PO DAILY [facility] Last Admin: 10/23/16 10:34 Dose: 15 ml Pantoprazole Sodium (Protonix Inj) 40 mg IVP DAILY [facility] Last Admin: 10/23/16 10:34 Dose: 40 mg Ropinirole HCl (Requip) 0.5 mg NG TID [facility] Last Admin: 10/23/16 14:29 Dose: 0.5 mg Silver Sulfadiazine (Silvadene 1% 20 Gm) 0 ea TOP DAILY [facility] Last Admin: 10/23/16 09:00 Dose: 1 applic Zinc Sulfate (Zinc Sulfate 220 Mg Cap) 220 mg PEG DAILY [facility] Last Admin: 10/23/16 10:34 Dose: 220 mg - Labs Labs: 10/23/16 09:11 10/23/16 09:11 Attending/Attestation - Attestation I have personally seen and examined this patient.: Yes I have fully participated in the care of the patient.: Yes I have reviewed all pertinent clinical information, including history, physical exam and plan: Yes Notes (Text): 10/23/16 17:36 Patient seen with Gi fellow. This is a 86 year old female with history of HTN, TIA, COPD, end-stage Parkinson's disease, contractures, dysphagia s/p PEG, multiple pressure ulcers complicated by infection, recurrent UTIs admitted with diarrhea. Also questionable PEG tube malfunction. C diff negative. Functional PEG- continue feeds as tolerated. GNR on urine culture. Antibiotics as per primary team. 10/23/16 17:37
--- NOTE | 2016-10-23 13:36 | CP.PCM.PN ---
<Eder Pineda - Last Filed: 10/23/16 20:59> Subjective - Date & Time of Evaluation Date of Evaluation: 10/23/16 Time of Evaluation: 13:29 - Subjective Subjective: Medicine progress note - Eder Mejiarodolfo PGY1 Patient seen and examined at bedside this morning. No acute overnight events or new complaints reported by nursing staff. Patient is tolerating PEG tube feeds well. 12 point ROS limited due to patient status. Objective - Vital Signs/Intake and Output Vital Signs (last 24 hours): Temp Pulse Resp BP Pulse Ox 98.4 F 87 20 119/60 99 10/23/16 07:00 10/23/16 07:00 10/23/16 07:00 10/23/16 10:34 10/23/16 07:00 Intake and Output: 10/23/16 10/23/16 06:59 18:59 Intake Total 1390 Output Total 1000 Balance 390 - Medications Medications: Current Medications Aspirin (Aspirin Chewable) 81 mg PEG DAILY [facility] Last Admin: 10/23/16 10:33 Dose: 81 mg Baclofen (Lioresal) 10 mg NG TID [facility] Last Admin: 10/23/16 10:34 Dose: 10 mg Clonidine HCl (Catapres) 0.1 mg PO BID [facility] Last Admin: 10/23/16 10:34 Dose: 0.1 mg Collagenase (Santyl) 0 gm TOP BID [facility] Last Admin: 10/23/16 09:00 Dose: 1 applic Vancomycin HCl (Vancomycin 1gm) 250 mls @ 167 mls/hr IVPB Q12 [facility] PRN Reason: Protocol Last Admin: 10/23/16 11:46 Dose: 167 mls/hr Meropenem 1g/NS 100mL IVPB (Meropenem 1g/Ns 100ml Ivpb) 100 mls @ 100 mls/hr IVPB Q8 [facility] PRN Reason: Protocol Stop: 10/28/16 08:01 Last Admin: 10/23/16 05:25 Dose: 100 mls/hr Multivitamins/Vitamin C 10 ml/Amino Acids/Electrolytes/Dextrose 1,010 mls @ 42 mls/hr IV .Q24H [facility] Last Admin: 10/22/16 17:44 Dose: 42 mls/hr Fat Emulsion Intravenous (Intralipid 20%) 250 mls @ 21 mls/hr IV 1800 [facility] Last Admin: 10/22/16 17:44 Dose: 21 mls/hr Multivitamins/Vitamin C (Multi-Delyn Liquid) 15 ml PO DAILY [facility] Last Admin: 10/23/16 10:34 Dose: 15 ml Pantoprazole Sodium (Protonix Inj) 40 mg IVP DAILY [facility] Last Admin: 10/23/16 10:34 Dose: 40 mg Ropinirole HCl (Requip) 0.5 mg NG TID [facility] Last Admin: 10/23/16 10:33 Dose: 0.5 mg Silver Sulfadiazine (Silvadene 1% 20 Gm) 0 ea TOP DAILY [facility] Last Admin: 10/23/16 09:00 Dose: 1 applic Zinc Sulfate (Zinc Sulfate 220 Mg Cap) 220 mg PEG DAILY [facility] Last Admin: 10/23/16 10:34 Dose: 220 mg - Labs Labs: 10/23/16 09:11 10/23/16 09:11 - Constitutional Appears: Non-toxic, No Acute Distress - Head Exam Head Exam: ATRAUMATIC, NORMAL INSPECTION, NORMOCEPHALIC - Eye Exam Eye Exam: EOMI - ENT Exam ENT Exam: Mucous Membranes Dry - Respiratory Exam Respiratory Exam: Clear to Ausculation Bilateral. absent: Rales, Rhonchi, Wheezes - Cardiovascular Exam Cardiovascular Exam: RRR, +S1, +S2. absent: Clicks, Gallop, Rubs - GI/Abdominal Exam GI & Abdominal Exam: Soft. absent: Distended, Tenderness Additional comments: peg tube clean dry and intact - Neurological Exam Neurological Exam: Awake. 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 Sacral Wound - Afebrile, no leukocytosis - Pending: Blood, urine and wound cultures - Lactate 1.1 - Air mattress - Continue Santyl on wound and optifoam on pressure ulcers - Wound cultures reviewed; growing klebsiella and enterococcus; continue abx as per ID recommendations - ID consulted - Dr. Choudhury - Surgery consulted - Dr. Chaudhry 2. Bacteremia - Blood cultures positive for gram positive cocci in clusters - Continue abx as per ID recommendations - Repeat blood cultures pending 3. Weight loss - PEG tube evaluated by GI; Functioning appropriately - Tube feeds resumed and tolerating well; increasing rate as tolerated - PPN being weaned - Dietitian consulted 4. Anemia - No overt signs of blood loss - No signs of upper GI bleed up to the pylorus as per GI - Hemoccult negative - hgb 8.5, MCV: 93 - continue to monitor CBC, will transfuse if Hgb <7 5. HTN - Continue Clonidine 6. Parkinson's disease (end-stage) - Continue Ropinerole and Baclofen 7. GI/DVT Prophylaxis -Protonix/SCD's Case discussed with attending, Dr. Gutierrez <Juan M Gutierrez - Last Filed: 11/29/16 08:29> Objective - Vital Signs/Intake and Output Vital Signs (last 24 hours): Temp Pulse Resp BP Pulse Ox 98.8 F 97 H 20 138/62 100 10/26/16 06:00 10/26/16 09:20 10/26/16 06:00 10/26/16 09:20 10/26/16 06:00 - Labs Labs: 10/26/16 09:20 10/26/16 09:20 Attending/Attestation - Attestation I have personally seen and examined this patient.: Yes I have fully participated in the care of the patient.: Yes I have reviewed all pertinent clinical information, including history, physical exam and plan: Yes Notes (Text): 11/29/16 08:29 Medical record note made by the resident after discussion with my direction and input after the patient was personally seen and examined by me. I have reviewed the chart and agree that the record reflects my personal performance of history, physical, data review and course for the patient that I have planned.
[2016-10-23] MEDS: Fat Emulsion 20% IV 250 ML IV SCH (17:49)
[2016-10-23] MEDS ORDERED: AMINO IV SCH (18:00)
[2016-10-23] MEDS ORDERED: MULTIVITAMIN IV SCH (18:00)
[2016-10-23] MEDS ORDERED: DEXT IV SCH (18:00)
--- NOTE | 2016-10-23 21:13 | CP.PCM.PN ---
Subjective - Date & Time of Evaluation Date of Evaluation: 10/23/16 Time of Evaluation: 13:35 - Subjective Subjective: Comfortable in bed, not in distress. No fevers overnight. Objective - Vital Signs/Intake and Output Vital Signs (last 24 hours): Temp Pulse Resp BP Pulse Ox 98.6 F 89 18 116/65 96 10/23/16 16:00 10/23/16 16:00 10/23/16 16:00 10/23/16 17:52 10/23/16 16:00 Intake and Output: 10/23/16 10/24/16 18:59 06:59 Intake Total 0 Output Total 300 Balance -300 - Medications Medications: Current Medications Aspirin (Aspirin Chewable) 81 mg PEG DAILY [facility] Last Admin: 10/23/16 10:33 Dose: 81 mg Baclofen (Lioresal) 10 mg NG TID [facility] Last Admin: 10/23/16 18:13 Dose: 10 mg Clonidine HCl (Catapres) 0.1 mg PO BID [facility] Last Admin: 10/23/16 17:52 Dose: 0.1 mg Collagenase (Santyl) 0 gm TOP BID [facility] Last Admin: 10/23/16 18:13 Dose: 1 applic Vancomycin HCl (Vancomycin 1gm) 250 mls @ 167 mls/hr IVPB Q12 [facility] PRN Reason: Protocol Last Admin: 10/23/16 11:46 Dose: 167 mls/hr Meropenem 1g/NS 100mL IVPB (Meropenem 1g/Ns 100ml Ivpb) 100 mls @ 100 mls/hr IVPB Q8 [facility] PRN Reason: Protocol Stop: 10/28/16 08:01 Last Admin: 10/23/16 14:30 Dose: 100 mls/hr Fat Emulsion Intravenous (Intralipid 20%) 250 mls @ 21 mls/hr IV 1800 [facility] Last Admin: 10/23/16 17:49 Dose: 21 mls/hr Multivitamins/Vitamin C 10 ml/ (Amino Acids) 1,010 mls @ 20 mls/hr IV .Q24H [facility] Last Admin: 10/23/16 17:50 Dose: 20 mls/hr Multivitamins/Vitamin C (Multi-Delyn Liquid) 15 ml PO DAILY [facility] Last Admin: 10/23/16 10:34 Dose: 15 ml Pantoprazole Sodium (Protonix Inj) 40 mg IVP DAILY [facility] Last Admin: 10/23/16 10:34 Dose: 40 mg Ropinirole HCl (Requip) 0.5 mg NG TID [facility] Last Admin: 10/23/16 17:52 Dose: 0.5 mg Silver Sulfadiazine (Silvadene 1% 20 Gm) 0 ea TOP DAILY [facility] Last Admin: 10/23/16 09:00 Dose: 1 applic Zinc Sulfate (Zinc Sulfate 220 Mg Cap) 220 mg PEG DAILY [facility] Last Admin: 10/23/16 10:34 Dose: 220 mg - Labs Labs: 10/23/16 09:11 10/23/16 09:11 - Constitutional Appears: Non-toxic, No Acute Distress - Head Exam Head Exam: NORMAL INSPECTION - ENT Exam ENT Exam: Mucous Membranes Moist - Neck Exam Neck Exam: absent: Lymphadenopathy, Meningismus - Respiratory Exam Respiratory Exam: Decreased Breath Sounds - Cardiovascular Exam Cardiovascular Exam: +S1, +S2 - GI/Abdominal Exam GI & Abdominal Exam: Soft. absent: Tenderness - Extremities Exam Additional comments: Assessment probable infected decubitus ulcers, with the right hip area being stage 4, with associated gram positive cocci bacteremia history of infected decubitus ulcers with E. faecalis, E. faecalis and ESBL- producing E. coli toxic-metabolic encephalopathy from acute renal failure and hypernatremia, clinically improving history of methicillin-resistant staph aureus bacteremia which is a line- related infection (i.e. port-a-cath) S/P removal of the port-a-cath history of pancreatitis contractures of the extremities COPD CAD DEmentia HTN PArkinson's disease history of transient ischemic attack S/P PEG tube placement Plan started patient on Vancomycin and Merrem day 2 pending identification and sensitivities of the gram positive cocci in the blood - will repeat blood cx tomorrow follow up surgery recommendations and plan Will continue to monitor clinically Assessment and Plan - Assessment and Plan (Free Text) Plan: Assessment probable infected decubitus ulcers, with the right hip area being stage 4 with ESBL Klebsiella and E. faecalis coagulase negative Staph in one bottle R/O contamination history of infected decubitus ulcers with E. faecalis, E. faecalis and ESBL- producing E. coli history of methicillin-resistant staph aureus bacteremia which is a line- related infection (i.e. port-a-cath) S/P removal of the port-a-cath history of pancreatitis contractures of the extremities COPD CAD DEmentia HTN PArkinson's disease history of transient ischemic attack S/P PEG tube placement Plan continue Vancomycin and Merrem day 3; follow up repeat blood cx done today follow up surgery recommendations and plan - since the hip ulcer on the right is stage 4, should plan 4 weeks of antibiotics Will continue to monitor clinically
[2016-10-24] MEDS: Meropenem 1g/NS 100mL IVPB 100 ML IVPB SCH ×4 (06:00→22:00)
[2016-10-24 08:41] LABS: ALB/GLOB RATIO 0.7 (1.1-1.8); ALKALINE PHOSPHATASE 78 U/L (38-133); ALT/SGPT 32 U/L (7-56); AST/SGOT 35 U/L (15-39); BILIRUBIN,TOTAL 0.3 mg/dL (0.2-1.3); BLOOD UREA NITROGEN 19 mg/dL (7-21); CALCIUM 8.6 mg/dL (8.4-10.5); CARBON DIOXIDE 20 mmol/L (21-33); CHLORIDE 112 mmol/L (98-107); GFR AFRICAN-AMERICAN > 60; GLUCOSE,RANDOM 94 mg/dL (70-110); POTASSIUM 4.4 mmol/L (3.6-5.0); SODIUM 140 mmol/L (132-148)
[2016-10-24 09:23] LABS: ADD MANUAL DIFF? NO
[2016-10-24 09:34] LABS: BASO # 0.02 K/mm3 (0.0-2.0); BASO % 0.5 % (0.0-3.0); EOS # 0.3 (0.0-0.7); EOS % 6.4 % (1.5-5.0); GRAN # 2.17 (1.4-6.5); GRAN % 51.7 % (50.0-68.0); HEMATOCRIT 25.5 % (36.0-48.0); LYMPH # 1.4 (1.2-3.4); LYMPH % 34.3 % (22.0-35.0); MEAN CELL VOLUME 91.1 fL (80.0-105.0); MEAN CORPUSCULAR HEMOGLOBIN 28.9 pg (25.0-35.0); MEAN CORPUSCULAR HGB CONC 31.8 g/dl (31.0-37.0); MEAN PLATELET VOLUME 10.7 fl (7.0-11.0); MONO # 0.3 (0.1-0.6); MONO % 7.1 % (1.0-6.0); PLATELET COUNT 291 10^3/uL (120.0-450.0); RED CELL DISTRIBUTION WIDTH 15.5 % (11.5-14.5); WHITE BLOOD COUNT 4.2 10^3/ul (4.5-11.0)
[2016-10-24] MEDS: Vancomycin 1gm in NS 250ml 250 ML IVPB SCH ×2 (10:45→22:00)
[2016-10-24] MEDS: Multi Vitamins 15 mL UD Oral Solution PO SCH (10:46)
[2016-10-24] MEDS: Silver Sulfadiazine 1% Cream (20 gm) TOP SCH (10:47)
[2016-10-24] MEDS: Collagenase 250 Units/gm Ointment(30 gm) TOP SCH ×2 (10:47→18:40)
--- NOTE | 2016-10-24 14:43 | CP.PCM.PN ---
Subjective - Date & Time of Evaluation Date of Evaluation: 10/24/16 Time of Evaluation: 10:00 - Subjective Subjective: No acute events overnight. Tolerating PEG tube feeds. Patient remains afebrile. Multiple ulcers are clinically improving. Objective - Vital Signs/Intake and Output Vital Signs (last 24 hours): Temp Pulse Resp BP Pulse Ox 97.8 F 86 20 137/61 98 10/24/16 06:00 10/24/16 06:00 10/24/16 06:00 10/24/16 10:45 10/24/16 06:00 Intake and Output: 10/24/16 10/24/16 06:59 18:59 Intake Total 1282 Output Total 600 Balance 682 - Medications Medications: Current Medications Aspirin (Aspirin Chewable) 81 mg PEG DAILY [facility] Last Admin: 10/24/16 10:46 Dose: 81 mg Baclofen (Lioresal) 10 mg NG TID [facility] Last Admin: 10/24/16 14:38 Dose: 10 mg Clonidine HCl (Catapres) 0.1 mg PO BID [facility] Last Admin: 10/24/16 10:45 Dose: 0.1 mg Collagenase (Santyl) 0 gm TOP BID [facility] Last Admin: 10/24/16 10:47 Dose: 1 applic Vancomycin HCl (Vancomycin 1gm) 250 mls @ 167 mls/hr IVPB Q12 [facility] PRN Reason: Protocol Last Admin: 10/24/16 10:45 Dose: 167 mls/hr Meropenem 1g/NS 100mL IVPB (Meropenem 1g/Ns 100ml Ivpb) 100 mls @ 100 mls/hr IVPB Q8 [facility] PRN Reason: Protocol Stop: 10/28/16 08:01 Last Admin: 10/24/16 14:38 Dose: 100 mls/hr Fat Emulsion Intravenous (Intralipid 20%) 250 mls @ 21 mls/hr IV 1800 [facility] Last Admin: 10/23/16 17:49 Dose: 21 mls/hr Multivitamins/Vitamin C 10 ml/ (Amino Acids) 1,010 mls @ 20 mls/hr IV .Q24H [facility] Last Admin: 10/23/16 17:50 Dose: 20 mls/hr Multivitamins/Vitamin C (Multi-Delyn Liquid) 15 ml PO DAILY [facility] Last Admin: 10/24/16 10:46 Dose: 15 ml Pantoprazole Sodium (Protonix Inj) 40 mg IVP DAILY [facility] Last Admin: 10/24/16 10:46 Dose: 40 mg Ropinirole HCl (Requip) 0.5 mg NG TID [facility] Last Admin: 10/24/16 14:38 Dose: 0.5 mg Silver Sulfadiazine (Silvadene 1% 20 Gm) 0 ea TOP DAILY [facility] Last Admin: 10/24/16 10:47 Dose: 1 applic Zinc Sulfate (Zinc Sulfate 220 Mg Cap) 220 mg PEG DAILY [facility] Last Admin: 10/24/16 10:45 Dose: 220 mg - Labs Labs: 10/24/16 05:30 10/24/16 08:00 - Constitutional Appears: Non-toxic, No Acute Distress - Head Exam Head Exam: ATRAUMATIC - Eye Exam Eye Exam: PERRL - ENT Exam ENT Exam: Mucous Membranes Dry - Neck Exam Neck Exam: absent: Full ROM (neck is contracted) - Respiratory Exam Respiratory Exam: Clear to Ausculation Bilateral. absent: Rales, Rhonchi, Wheezes - Cardiovascular Exam Cardiovascular Exam: REGULAR RHYTHM, +S1 - GI/Abdominal Exam GI & Abdominal Exam: Soft, Normal Bowel Sounds. absent: Tenderness - Extremities Exam Extremities Exam: absent: Normal Inspection (all extremities contracted), Pedal Edema - Neurological Exam Neurological Exam: Awake - Skin Skin Exam: Dry, Normal Color, Warm Additional comments: stage 3 ulceration to sacrum. stage 3 ulceration to right inguinal area. stage 1 ulcer right medial thigh. Assessment and Plan - Assessment and Plan (Free Text) Assessment: 86 y/o female with hx end-stage Parkinsons disease, chronic limb contractures, s /p PEG placement with multiple chronic non-healing wounds. Patient is afebrile. There are 3 significant wounds which include a stage 3 3cm x 3cm right sacral ulceration, a stage 3 2cm x 2cmulceration to right inguinal area as well as a stage 1 right medial thigh ulcer. Wounds are clinically improved from initial presentation. There is no signs of overt infection. - continue wound management with Santyl, Silvadene dressing changes - air bed with frequent position changes - Meropenem, Vancomycin day #4per ID - no surgical debridement at this time
[2016-10-24] MEDS: Fat Emulsion 20% IV 250 ML IV SCH (18:24)
--- NOTE | 2016-10-24 19:10 | CP.PCM.CON ---
History of Present Illness - History of Present Illness History of Present Illness: Hematology Consult Referred by Dr. Gutierrez for leukopenia HPI- Ms Woodson is 86 y/o F with h/o Parkinson's disease (end-stage) with chronic contractions to all extremities, HTN, COPD, TIA, s/p PEG who was intially admitted with diarrhea and "black discharge" from PEG tube. Stool ocult was negative. She was subsequently seen by GI and PEG tube was found to be functioning well. She was started on IV antibiotics (Vancomycin and Meropenem) for infected decubitus ulcers. She was seen by surgery and is undergoing wound management. Review of her labs show WBC of 4.6 at admission which dropped to 2.9 on 10/23 and is back up to 4.2 today. Her prior blood counts also show low normal WBC. She also has baseline chronic low normocytic anemia with Hb in range of 8 -11. Platelet counts are normal. No evidence of bleeding during this hospitalization. No fevers reported. Other ROS is unobtainable due to her mental condition. Past Patient History - Infectious Disease Hx of Infectious Diseases: None - Tetanus Immunizations Tetanus Immunization: Unknown - Past Social History Smoking Status: Never Smoked - CARDIAC Hx Cardia Arrhythmia: Yes (current; atrial fibrillation.) Hx Congestive Heart Failure: Yes Hx Hypertension: Yes Hx Peripheral Edema: No - PULMONARY Hx Pneumonia: Yes (x3) - NEUROLOGICAL Hx Dementia: Yes Hx Parkinson's Disease: Yes Hx Transient Ischemic Attacks (TIA): Yes - HEENT Hx HEENT Problems: Yes Hx Cataracts: Yes (lt eye) - RENAL Hx Chronic Kidney Disease: No - ENDOCRINE/METABOLIC Hx Endocrine Disorders: No - HEMATOLOGICAL/ONCOLOGICAL Hx Blood Transfusions: Yes Hx Blood Transfusion Reaction: No - INTEGUMENTARY Hx Dermatological Problems: No - MUSCULOSKELETAL/RHEUMATOLOGICAL Hx Fractures: Yes (Left Foot Fx; 2000.) Hx Osteoporosis: Yes - GASTROINTESTINAL Hx Pancreatitis: Yes (current.) - GENITOURINARY/GYNECOLOGICAL Hx Genitourinary Disorders: Yes Hx Incontinence: Yes - PSYCHIATRIC Hx Depression: No Hx Substance Use: No - SURGICAL HISTORY Other/Comment: Feeding tube insertion - ANESTHESIA Hx Anesthesia Reactions: No Hx Malignant Hyperthermia: No Meds Allergies/Adverse Reactions: Allergies Allergy/AdvReac Type Severity Reaction Status Date / Time Sulfa (Sulfonamide Allergy SWELLING Verified 08/20/16 20:10 Antibiotics) - Medications Medications: Current Medications Aspirin (Aspirin Chewable) 81 mg PEG DAILY [facility] Last Admin: 10/24/16 10:46 Dose: 81 mg Baclofen (Lioresal) 10 mg NG TID [facility] Last Admin: 10/24/16 18:23 Dose: 10 mg Clonidine HCl (Catapres) 0.1 mg PO BID [facility] Last Admin: 10/24/16 18:22 Dose: 0.1 mg Collagenase (Santyl) 0 gm TOP BID [facility] Last Admin: 10/24/16 18:40 Dose: 1 applic Vancomycin HCl (Vancomycin 1gm) 250 mls @ 167 mls/hr IVPB Q12 [facility] PRN Reason: Protocol Last Admin: 10/24/16 10:45 Dose: 167 mls/hr Meropenem 1g/NS 100mL IVPB (Meropenem 1g/Ns 100ml Ivpb) 100 mls @ 100 mls/hr IVPB Q8 [facility] PRN Reason: Protocol Stop: 10/28/16 08:01 Last Admin: 10/24/16 14:38 Dose: 100 mls/hr Multivitamins/Vitamin C 10 ml/ (Amino Acids) 1,010 mls @ 20 mls/hr IV .Q24H [facility] Last Admin: 10/24/16 18:25 Dose: 20 mls/hr Iron Sucrose 100 mg/ Sodium (Chloride) 105 mls @ 210 mls/hr IVPB DAILY [facility] Stop: 10/29/16 10:01 Multivitamins/Vitamin C (Multi-Delyn Liquid) 15 ml PO DAILY [facility] Last Admin: 10/24/16 10:46 Dose: 15 ml Pantoprazole Sodium (Protonix Inj) 40 mg IVP DAILY [facility] Last Admin: 10/24/16 10:46 Dose: 40 mg Ropinirole HCl (Requip) 0.5 mg NG TID [facility] Last Admin: 10/24/16 18:23 Dose: 0.5 mg Silver Sulfadiazine (Silvadene 1% 20 Gm) 0 ea TOP DAILY [facility] Last Admin: 10/24/16 10:47 Dose: 1 applic Zinc Sulfate (Zinc Sulfate 220 Mg Cap) 220 mg PEG DAILY [facility] Last Admin: 10/24/16 10:45 Dose: 220 mg Physical Exam - Eye Exam Eye Exam: PERRL - ENT Exam ENT Exam: Mucous Membranes Moist - Respiratory Exam Respiratory Exam: Clear to Auscultation Bilateral - Cardiovascular Exam Cardiovascular Exam: REGULAR RHYTHM - GI/Abdominal Exam GI & Abdominal Exam: Soft. absent: Tenderness Additional comments: PEG tube + - Extremities Exam Extremities exam: Negative for: pedal edema Additional comments: contractures of all extremities Results - Vital Signs Recent Vital Signs: Last Vital Signs Temp 97.8 F 10/24/16 06:00 Pulse 86 10/24/16 06:00 Resp 20 10/24/16 06:00 BP 127/64 10/24/16 18:22 Pulse Ox 98 10/24/16 06:00 - Labs Result Diagrams: 10/24/16 05:30 10/24/16 08:00 Labs: Laboratory Results - last 24 hr 10/24/16 10/24/16 05:30 08:00 WBC 4.2 L D RBC 2.80 L Hgb 8.1 L Hct 25.5 L MCV 91.1 MCH 28.9 MCHC 31.8 RDW 15.5 H Plt Count 291 MPV 10.7 Gran % 51.7 Lymph % (Auto) 34.3 [place] % (Auto) 7.1 H Eos % (Auto) 6.4 H Baso % (Auto) 0.5 Gran # 2.17 Lymph # 1.4 [place] # 0.3 Eos # 0.3 Baso # 0.02 Sodium 140 Potassium 4.4 Chloride 112 H Carbon Dioxide 20 L Anion Gap 12 BUN 19 Creatinine 0.4 L Est GFR ( Amer) > 60 Est GFR (Non-Af Amer) > 60 Random Glucose 94 Calcium 8.6 Total Bilirubin 0.3 AST 35 ALT 32 Alkaline Phosphatase 78 Total Protein 7.0 Albumin 2.8 L Globulin 4.2 Albumin/Globulin Ratio 0.7 L Assessment & Plan - Assessment and Plan (Free Text) Assessment: Mild leukopenia and Baseline normocytic anemia The differential in her case includes iron def, general nutritional def, medications, infection, bone marrow suppression or other bone marrow disorders like MDS. Will start her on IV Venofer 100 mg daily for 3-4 days. Continue to monitor for any bleeding. Monitor blood counts routinely. Will repeat SPEP (prior results showed possibility of a faint band) WBC seems to be getting stabilized now. No further intervention for now. We could consider a bone marrow biopsy to rule out MDS, though considering her multiple comorbid conditions, we could continue with conservative treatment for now. Thank you for the consult Sergey Hubbard - Date & Time Date: 10/24/16 Time: 19:10
--- NOTE | 2016-10-24 19:28 | CP.PCM.PN ---
<Eder Pineda - Last Filed: 10/24/16 19:25> Subjective - Date & Time of Evaluation Date of Evaluation: 10/24/16 Time of Evaluation: 07:00 - Subjective Subjective: Patient seen and examined at bedside. No acute changes overnight as per nursing staff. Tolerating PEG tube feeds and PPN well. 12 point ROS limited due to patient status. Objective - Vital Signs/Intake and Output Vital Signs (last 24 hours): Temp Pulse Resp BP Pulse Ox 97.8 F 86 20 127/64 98 10/24/16 06:00 10/24/16 06:00 10/24/16 06:00 10/24/16 18:22 10/24/16 06:00 Intake and Output: 10/24/16 10/25/16 18:59 06:59 Intake Total 1010 Output Total 400 Balance 610 - Medications Medications: Current Medications Aspirin (Aspirin Chewable) 81 mg PEG DAILY [facility] Last Admin: 10/24/16 10:46 Dose: 81 mg Baclofen (Lioresal) 10 mg NG TID [facility] Last Admin: 10/24/16 18:23 Dose: 10 mg Clonidine HCl (Catapres) 0.1 mg PO BID [facility] Last Admin: 10/24/16 18:22 Dose: 0.1 mg Collagenase (Santyl) 0 gm TOP BID [facility] Last Admin: 10/24/16 18:40 Dose: 1 applic Vancomycin HCl (Vancomycin 1gm) 250 mls @ 167 mls/hr IVPB Q12 [facility] PRN Reason: Protocol Last Admin: 10/24/16 10:45 Dose: 167 mls/hr Meropenem 1g/NS 100mL IVPB (Meropenem 1g/Ns 100ml Ivpb) 100 mls @ 100 mls/hr IVPB Q8 [facility] PRN Reason: Protocol Stop: 10/28/16 08:01 Last Admin: 10/24/16 14:38 Dose: 100 mls/hr Multivitamins/Vitamin C 10 ml/ (Amino Acids) 1,010 mls @ 20 mls/hr IV .Q24H [facility] Last Admin: 10/24/16 18:25 Dose: 20 mls/hr Iron Sucrose 100 mg/ Sodium (Chloride) 105 mls @ 210 mls/hr IVPB DAILY [facility] Stop: 10/29/16 10:01 Multivitamins/Vitamin C (Multi-Delyn Liquid) 15 ml PO DAILY [facility] Last Admin: 10/24/16 10:46 Dose: 15 ml Pantoprazole Sodium (Protonix Inj) 40 mg IVP DAILY [facility] Last Admin: 10/24/16 10:46 Dose: 40 mg Ropinirole HCl (Requip) 0.5 mg NG TID [facility] Last Admin: 10/24/16 18:23 Dose: 0.5 mg Silver Sulfadiazine (Silvadene 1% 20 Gm) 0 ea TOP DAILY [facility] Last Admin: 10/24/16 10:47 Dose: 1 applic Zinc Sulfate (Zinc Sulfate 220 Mg Cap) 220 mg PEG DAILY [facility] Last Admin: 10/24/16 10:45 Dose: 220 mg - Labs Labs: 10/24/16 05:30 10/24/16 08:00 - Constitutional Appears: No Acute Distress - Head Exam Head Exam: ATRAUMATIC, NORMAL INSPECTION, NORMOCEPHALIC - Eye Exam Eye Exam: EOMI - ENT Exam ENT Exam: Mucous Membranes Dry - Neck Exam Neck Exam: Normal Inspection - Respiratory Exam Respiratory Exam: Decreased Breath Sounds. absent: Rales, Rhonchi, Wheezes - Cardiovascular Exam Cardiovascular Exam: RRR, +S1, +S2, Murmur. absent: Gallop, Rubs - GI/Abdominal Exam GI & Abdominal Exam: Soft. absent: Distended, Firm, Guarding, Rigid Additional comments: peg tube in place, clean dry and intact - Neurological Exam Neurological Exam: Awake. 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 1.Sacral wound * Afebrile, no leukocytosis * Urine culture positive for Klebsiella pneumoniae * Wound culture positive for Klebsiella pneumoniae and enterococcus faecalis * Continue antibiotics as per ID recommendations - Dr. Choudhury * Lactate 1.1 * Air mattress * Continue Santyl on wound and optifoam on pressure ulcers * Surgery consulted - Dr. Chaudhry 2. Bacteremia * Blood cultures pos for gram positive cocci in clusters * Continue abx as per ID recommendations - meropenem and vancomycin * Repeat blood culture negative after 24 hours, will continue to follow 3. Leukopenia * ANC 1247 previously; presently resolving * Patient started on venofer per hematology recommendations * SPEP pending * Heme/onc consulted - Dr. Roach 4. Anemia * No overt signs of blood loss * No signs of upper GI bleed up to the pylorus as per GI * Hemeoccult neg * Hgb 8.1 MCV 91.1 * Continue to monitor CBC, will transfuse if Hgb <7 * Heme/onc consulted - Dr. Roach 5. HTN * Continue clonidine 6. Jared disease * Continue Ropinerole and Baclofen 7. GI/DVT prophylaxis * protonix/SCDs Patient seen, reviewed, and case discussed with attending, Brenda Molina. <Juan M Gutiererz - Last Filed: 11/29/16 08:29> Objective - Vital Signs/Intake and Output Vital Signs (last 24 hours): Temp Pulse Resp BP Pulse Ox 98.8 F 97 H 20 138/62 100 10/26/16 06:00 10/26/16 09:20 10/26/16 06:00 10/26/16 09:20 10/26/16 06:00 - Labs Labs: 10/26/16 09:20 10/26/16 09:20 Attending/Attestation - Attestation I have personally seen and examined this patient.: Yes I have fully participated in the care of the patient.: Yes I have reviewed all pertinent clinical information, including history, physical exam and plan: Yes Notes (Text): 11/29/16 08:29 Medical record note made by the resident after discussion with my direction and input after the patient was personally seen and examined by me. I have reviewed the chart and agree that the record reflects my personal performance of history, physical, data review and course for the patient that I have planned.
--- NOTE | 2016-10-24 22:56 | PN ---
DATE: 10/24/2016 The patient was seen in 370, contracted, weak, cachectic. PHYSICAL EXAMINATION: VITAL SIGNS: Temperature of 97, BMI of 14, blood pressure is 120/60, respiratory rate of 20. HEENT: Unremarkable. NECK: Supple. LUNGS: Have decreased breath sounds. HEART: Normal S1, S2. ABDOMEN: Soft. LABORATORY DATA: Reveals the white count is 4.2, hemoglobin of 8. BUN of 19, creatinine of 0.4. Ur inalysis is noted. Microbiology reveals the decubitus cultures with Klebsiella. The blood culture i s 1 bottle coag negative staph, ____ . Urine cultures show Klebsiella pneumoniae. Review of the orders reveals the patient to be on vancomycin and meropenem. ASSESSMENT AND PLAN: This is an 86-year-old with infected decubitus ulcer and gram-positive cocci ba cteremia and contracted, bedridden with chronic obstructive pulmonary disease, coronary artery diseas e, dementia, hypertension, Parkinson's disease on vancomycin and meropenem day #3. Overall, prognosi s is quite poor. Should consider hospice setting for this patient with no quality of life. Aristeo Choudhury MD cc: [phone] TT: 10/24/2016 22:55:36 Confirmation # [id number] Dictation # [id number] cindy
[2016-10-25] MEDS: Meropenem 1g/NS 100mL IVPB 100 ML IVPB SCH ×3 (05:53→21:36)
[2016-10-25 08:20] LABS: ADD MANUAL DIFF? NO
[2016-10-25 08:22] LABS: BASO # 0.02 K/mm3 (0.0-2.0); BASO % 0.6 % (0.0-3.0); EOS # 0.2 (0.0-0.7); GRAN # 1.72 (1.4-6.5); GRAN % 47.4 % (50.0-68.0); HEMATOCRIT 25.7 % (36.0-48.0); LYMPH # 1.4 (1.2-3.4); LYMPH % 38.4 % (22.0-35.0); MEAN CELL VOLUME 91.5 fL (80.0-105.0); MEAN CORPUSCULAR HEMOGLOBIN 28.8 pg (25.0-35.0); MEAN CORPUSCULAR HGB CONC 31.5 g/dl (31.0-37.0); MEAN PLATELET VOLUME 9.7 fl (7.0-11.0); MONO # 0.3 (0.1-0.6); MONO % 8.6 % (1.0-6.0); PLATELET COUNT 273 10^3/uL (120.0-450.0); RED CELL DISTRIBUTION WIDTH 15.7 % (11.5-14.5); WHITE BLOOD COUNT 3.6 10^3/ul (4.5-11.0)
[2016-10-25 08:36] LABS: ALB/GLOB RATIO 0.7 (1.1-1.8); ALKALINE PHOSPHATASE 89 U/L (38-133); ALT/SGPT 35 U/L (7-56); AST/SGOT 32 U/L (15-39); BILIRUBIN,TOTAL 0.2 mg/dL (0.2-1.3); BLOOD UREA NITROGEN 17 mg/dL (7-21); CALCIUM 8.6 mg/dL (8.4-10.5); CARBON DIOXIDE 23 mmol/L (21-33); CHLORIDE 113 mmol/L (95-110); GFR AFRICAN-AMERICAN > 60; GLUCOSE,RANDOM 96 mg/dL (70-110); POTASSIUM 3.9 mmol/L (3.6-5.0); SODIUM 143 mmol/L (132-148); TOTAL PROTEIN 6.5 g/dL (5.8-8.3)
--- NOTE | 2016-10-25 09:50 | CP.PCM.PN ---
<Eder Pineda - Last Filed: 10/25/16 14:25> Subjective - Date & Time of Evaluation Date of Evaluation: 10/25/16 Time of Evaluation: 09:39 - Subjective Subjective: Medicine progress note - Eder Pineda PGY1 Patient seen and examined at bedside. No acute changes overnight as per nursing staff. Tolerating PEG tube feeds, PPN to be weaned off/discontinued. 12 point ROS limited due to patient status. Objective - Vital Signs/Intake and Output Vital Signs (last 24 hours): Temp Pulse Resp BP Pulse Ox 97.5 F L 83 20 127/64 97 10/24/16 16:00 10/24/16 16:00 10/24/16 16:00 10/24/16 18:22 10/24/16 16:00 Intake and Output: 10/25/16 10/25/16 06:59 18:59 Intake Total 1292 0 Output Total 525 750 Balance 767 -750 - Medications Medications: Current Medications Aspirin (Aspirin Chewable) 81 mg PEG DAILY [facility] Last Admin: 10/24/16 10:46 Dose: 81 mg Baclofen (Lioresal) 10 mg NG TID [facility] Last Admin: 10/24/16 18:23 Dose: 10 mg Clonidine HCl (Catapres) 0.1 mg PO BID [facility] Last Admin: 10/24/16 18:22 Dose: 0.1 mg Collagenase (Santyl) 0 gm TOP BID [facility] Last Admin: 10/24/16 18:40 Dose: 1 applic Vancomycin HCl (Vancomycin 1gm) 250 mls @ 167 mls/hr IVPB Q12 [facility] PRN Reason: Protocol Last Admin: 10/24/16 22:00 Dose: 167 mls/hr Meropenem 1g/NS 100mL IVPB (Meropenem 1g/Ns 100ml Ivpb) 100 mls @ 100 mls/hr IVPB Q8 [facility] PRN Reason: Protocol Stop: 10/28/16 08:01 Last Admin: 10/25/16 05:53 Dose: 100 mls/hr Multivitamins/Vitamin C 10 ml/ (Amino Acids) 1,010 mls @ 20 mls/hr IV .Q24H [facility] Last Admin: 10/24/16 18:25 Dose: 20 mls/hr Iron Sucrose 100 mg/ Sodium (Chloride) 105 mls @ 210 mls/hr IVPB DAILY [facility] Stop: 10/29/16 10:01 Multivitamins/Vitamin C (Multi-Delyn Liquid) 15 ml PO DAILY [facility] Last Admin: 10/24/16 10:46 Dose: 15 ml Pantoprazole Sodium (Protonix Inj) 40 mg IVP DAILY [facility] Last Admin: 10/24/16 10:46 Dose: 40 mg Ropinirole HCl (Requip) 0.5 mg NG TID [facility] Last Admin: 10/24/16 18:23 Dose: 0.5 mg Silver Sulfadiazine (Silvadene 1% 20 Gm) 0 ea TOP DAILY [facility] Last Admin: 10/24/16 10:47 Dose: 1 applic Zinc Sulfate (Zinc Sulfate 220 Mg Cap) 220 mg PEG DAILY [facility] Last Admin: 10/24/16 10:45 Dose: 220 mg - Labs Labs: 10/25/16 08:00 10/25/16 08:00 - Constitutional Appears: Non-toxic, No Acute Distress - Head Exam Head Exam: ATRAUMATIC, NORMAL INSPECTION, NORMOCEPHALIC - Eye Exam Eye Exam: EOMI - ENT Exam ENT Exam: Mucous Membranes Dry - Neck Exam Neck Exam: Normal Inspection - Respiratory Exam Respiratory Exam: Decreased Breath Sounds. absent: Rales, Rhonchi, Wheezes - Cardiovascular Exam Cardiovascular Exam: RRR, +S1, +S2. absent: Gallop, Rubs - GI/Abdominal Exam GI & Abdominal Exam: Soft. absent: Distended, Firm, Tenderness Additional comments: peg tube in place; area clean dry and intact - Neurological Exam Neurological Exam: Awake. 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 1.Sacral wound * Afebrile, no leukocytosis * Urine culture positive for Klebsiella pneumoniae * Wound culture positive for Klebsiella pneumoniae and enterococcus faecalis * Continue antibiotics as per ID recommendations - Dr. Choudhury * Lactate 1.1 * Air mattress * Continue Santyl on wound and optifoam on pressure ulcers * Surgery consulted - Dr. Chaudhry 2. Bacteremia * Blood cultures pos for gram positive cocci in clusters * Repeat blood culture negative after 48 hours, will continue to follow * Discussed with the surgical team regarding placing a line for IV access given need for prolonged treatment with antibiotics. Patient likely accepted to [facility] for further care. Surgical team to evaluate. * Continue abx as per ID recommendations - meropenem and vancomycin 3. Leukopenia * ANC 1247 previously; presently resolving * SPEP pending * Heme/onc consulted - Dr. Roach 4. Anemia * No overt signs of blood loss * No signs of upper GI bleed up to the pylorus as per GI * Hemeoccult neg * Patient started on venofer per hematology recommendations * Continue to monitor CBC, will transfuse if Hgb <7 * Heme/onc consulted - Dr. Roach 5. HTN * Continue clonidine 6. Parkinsons disease * Continue Ropinerole and Baclofen 7. GI/DVT prophylaxis * protonix/SCDs Disposition: Patient currently being treatment for sacral wound infection/ bacteremia/UTI; media relations manager/social welfare clerk working with family for terminal manager placement. Patient seen, reviewed, and case discussed with attending, Dr. Cline <Cl Cline - Last Filed: 11/01/16 09:22> Objective - Vital Signs/Intake and Output Vital Signs (last 24 hours): Temp Pulse Resp BP Pulse Ox 98.8 F 97 H 20 138/62 100 10/26/16 06:00 10/26/16 09:20 10/26/16 06:00 10/26/16 09:20 10/26/16 06:00 - Labs Labs: 10/26/16 09:20 10/26/16 09:20 Attending/Attestation - Attestation I have personally seen and examined this patient.: Yes I have fully participated in the care of the patient.: Yes I have reviewed all pertinent clinical information, including history, physical exam and plan: Yes Notes (Text): 11/01/16 09:22 Medical record note made by the resident after discussion with my direction and input after the patient was personally seen and examined by me. I have reviewed the chart and agree that the record accurately reflects by personal performance of the history, physical exam, data review, and medical decision-making, in the course for the patient. I have also personally directed the plan of care.
[2016-10-25 10:40] VITALS: O2SAT 100
[2016-10-25] MEDS: Collagenase 250 Units/gm Ointment(30 gm) TOP SCH ×2 (10:49→18:00)
[2016-10-25] MEDS: Vancomycin 1gm in NS 250ml 250 ML IVPB SCH ×2 (10:49→21:36)
[2016-10-25] MEDS: Multi Vitamins 15 mL UD Oral Solution PO SCH (10:50)
[2016-10-25] MEDS: Silver Sulfadiazine 1% Cream (20 gm) TOP SCH (10:50)
--- NOTE | 2016-10-25 14:40 | PN ---
DATE: 10/25/2016 The patient is in bed, in no acute distress, nontoxic. PHYSICAL EXAMINATION: VITAL SIGNS: Temperature is 97, blood pressure is 130/50, respiratory rate of 16. HEENT: Unremarkable. NECK: Supple. LUNGS: Have decreased breath sounds. HEART: Normal S1, S2. ABDOMEN: Soft, nontender. LABORATORY EXAMINATION: Reveals a white count of 3.6, hemoglobin of 8 and platelets of 273. Adjunct Faculty Instructor erin are noted. Microbiology reveals the patient's Klebsiella pneumoniae and enterococcus from the d ecubitus culture and sensitivity of the Klebsiella is ESBL Klebsiella, sensitive to meropenem and the Klebsiella in the urine, also ESBL. The blood cultures are coag-negative Staph. Review of the orders reveals the patient to be on vancomycin and meropenem. ASSESSMENT AND PLAN: An 86-year-old female with infected decubitus ulcer, gram-positive cocci bacter emia, contracted, bedridden, with extended-spectrum beta-lactamase Klebsiella in the urine and the de cubitus ulcer, on vancomycin and meropenem day #4. We will check on a vancomycin trough level. Woul d consider discussing with family members regarding a hospice setting in this patient who is contract ed with no quality of life. Aristeo Choudhury MD cc: [phone] TT: 10/25/2016 14:39:33 Confirmation # [id number] Dictation # [id number] en
--- NOTE | 2016-10-25 14:43 | CP.PCM.PN ---
Subjective - Date & Time of Evaluation Date of Evaluation: 10/25/16 Time of Evaluation: 09:10 - Subjective Subjective: Patient seen and examined at bedside. Remains afebrile. Primary team is arranging discharge planning. Patient is tolerating tube feeds. Chronic wounds are improving. Objective - Vital Signs/Intake and Output Vital Signs (last 24 hours): Temp Pulse Resp BP Pulse Ox 97.8 F 90 18 133/52 L 100 10/25/16 10:39 10/25/16 10:39 10/25/16 10:39 10/25/16 10:39 10/25/16 10:39 Intake and Output: 10/25/16 10/25/16 06:59 18:59 Intake Total 1292 0 Output Total 525 750 Balance 767 -750 - Medications Medications: Current Medications Aspirin (Aspirin Chewable) 81 mg PEG DAILY [facility] Last Admin: 10/25/16 10:48 Dose: 81 mg Baclofen (Lioresal) 10 mg NG TID [facility] Last Admin: 10/25/16 13:42 Dose: 10 mg Clonidine HCl (Catapres) 0.1 mg PO BID [facility] Last Admin: 10/25/16 10:48 Dose: 0.1 mg Collagenase (Santyl) 0 gm TOP BID [facility] Last Admin: 10/25/16 10:49 Dose: 1 applic Vancomycin HCl (Vancomycin 1gm) 250 mls @ 167 mls/hr IVPB Q12 [facility] PRN Reason: Protocol Last Admin: 10/25/16 10:49 Dose: 167 mls/hr Meropenem 1g/NS 100mL IVPB (Meropenem 1g/Ns 100ml Ivpb) 100 mls @ 100 mls/hr IVPB Q8 [facility] PRN Reason: Protocol Stop: 10/28/16 08:01 Last Admin: 10/25/16 13:42 Dose: 100 mls/hr Iron Sucrose 100 mg/ Sodium (Chloride) 105 mls @ 210 mls/hr IVPB DAILY [facility] Stop: 10/29/16 10:01 Last Admin: 10/25/16 10:48 Dose: 210 mls/hr Pantoprazole Sodium (Protonix Inj) 40 mg IVP DAILY [facility] Last Admin: 10/25/16 10:48 Dose: 40 mg Ropinirole HCl (Requip) 0.5 mg NG TID [facility] Last Admin: 10/25/16 13:42 Dose: 0.5 mg Silver Sulfadiazine (Silvadene 1% 20 Gm) 0 ea TOP DAILY [facility] Last Admin: 10/25/16 10:50 Dose: 1 applic Zinc Sulfate (Zinc Sulfate 220 Mg Cap) 220 mg PEG DAILY [facility] Last Admin: 10/25/16 10:50 Dose: 220 mg - Labs Labs: 10/25/16 08:00 10/25/16 08:00 - Constitutional Appears: Non-toxic, No Acute Distress - Head Exam Head Exam: ATRAUMATIC, NORMOCEPHALIC - Eye Exam Eye Exam: EOMI, PERRL - ENT Exam ENT Exam: Mucous Membranes Moist - Neck Exam Neck Exam: absent: Full ROM (contracted ) - Respiratory Exam Respiratory Exam: Accessory Muscle Use. absent: Rales, Rhonchi, Wheezes - Cardiovascular Exam Cardiovascular Exam: REGULAR RHYTHM, +S1, +S2 - GI/Abdominal Exam GI & Abdominal Exam: Soft, Normal Bowel Sounds. absent: Tenderness - Extremities Exam Extremities Exam: absent: Calf Tenderness, Full ROM (contractions to all limbs ) , Pedal Edema - Neurological Exam Neurological Exam: Alert, Awake - Skin Skin Exam: Normal Color, Warm Additional comments: stage 3 sacral decubitous ulcer. Stage 3 ulceration to right inguinal area. Stage 1 ulcer right medial thigh. Assessment and Plan - Assessment and Plan (Free Text) Assessment: 86 y/o female with hx end-stage Parkinsons disease, chronic limb contractures, s /p PEG placement with multiple chronic non-healing wounds. Patient is afebrile. There are 3 significant wounds which include a stage 3 3cm x 3cm right sacral ulceration, a stage 3 2cm x 2cmulceration to right inguinal area as well as a stage 1 right medial thigh ulcer. Wounds are clinically improved from initial presentation. There is no signs of overt infection. - continue wound management with Santyl, Silvadene dressing changes - air bed with frequent position changes - Meropenem, Vancomycin day #5per ID. patient will require predatory animal exterminator abx. patient may require discharge with central venous access. - no surgical debridement at this time
[2016-10-26] MEDS: Meropenem 1g/NS 100mL IVPB 100 ML IVPB SCH (06:26)
[2016-10-26] MEDS: Vancomycin 1gm in NS 250ml 250 ML IVPB SCH (09:03)
[2016-10-26 09:16] VITALS: RESP 20; TEMP 98.8
[2016-10-26] MEDS: Collagenase 250 Units/gm Ointment(30 gm) TOP SCH (09:21)
[2016-10-26] MEDS: Silver Sulfadiazine 1% Cream (20 gm) TOP SCH (09:21)
[2016-10-26 09:22] VITALS: BP 138/62; PULSE 97
[2016-10-26 09:28] LABS: ADD MANUAL DIFF? NO
[2016-10-26 09:32] LABS: BASO # 0.01 K/mm3 (0.0-2.0); BASO % 0.3 % (0.0-3.0); EOS # 0.2 (0.0-0.7); EOS % 5.8 % (1.5-5.0); GRAN # 1.98 (1.4-6.5); GRAN % 50.1 % (50.0-68.0); LYMPH # 1.4 (1.2-3.4); LYMPH % 36.2 % (22.0-35.0); MEAN CELL VOLUME 92.9 fL (80.0-105.0); MEAN CORPUSCULAR HEMOGLOBIN 28.9 pg (25.0-35.0); MEAN CORPUSCULAR HGB CONC 31.2 g/dl (31.0-37.0); MEAN PLATELET VOLUME 10.1 fl (7.0-11.0); MONO # 0.3 (0.1-0.6); MONO % 7.6 % (1.0-6.0); PLATELET COUNT 269 10^3/uL (120.0-450.0)
[2016-10-26 09:42] LABS: ALB/GLOB RATIO 0.7 (1.1-1.8); ALKALINE PHOSPHATASE 96 U/L (38-133); ALT/SGPT 30 U/L (7-56); AST/SGOT 25 U/L (15-39); BILIRUBIN,TOTAL 0.1 mg/dL (0.2-1.3); BLOOD UREA NITROGEN 21 mg/dL (7-21); CALCIUM 8.3 mg/dL (8.4-10.5); CARBON DIOXIDE 23 mmol/L (21-33); CHLORIDE 114 mmol/L (95-110); GFR AFRICAN-AMERICAN > 60; GLUCOSE,RANDOM 96 mg/dL (70-110); SODIUM 144 mmol/L (132-148); TOTAL PROTEIN 6.5 g/dL (5.8-8.3)
--- NOTE | 2016-10-26 11:11 | CP.PCM.DIS ---
<Eder Pineda - Last Filed: 10/27/16 11:49> Provider - Provider Date of Admission: 10/21/16 02:50 Attending physician: Juan M Gutierrez MD Consults: ID - Dr. Kei Kapadia - Dr. Roach Surgery - Dr. Chaudhry Time Spent in preparation of Discharge (in minutes): 30 Hospital Course - Lab Results Lab Results: Micro Results 10/23/16 09:11 Blood-Venous Blood Culture - Preliminary NO GROWTH AFTER 3 DAYS 10/21/16 05:15 Blood S.aureus & Coag-Neg Staph PNA FISH - Final 10/21/16 05:15 Blood Blood Culture - Final Coagulase Neg Staphylococcus 10/21/16 05:15 Blood Gram Stain - Final 10/21/16 13:25 Urine,Bergman Urine Culture - Final Klebsiella Pneumoniae Ssp Pneu 10/21/16 04:45 Decubitus - Back Gram Stain - Final 10/21/16 04:45 Decubitus - Back Wound Culture - Final Klebsiella Pneumoniae Ssp Pneu Enterococcus Faecalis Most Recent Lab Values WBC 4.0 10^3/ul (4.5-11.0) L 10/26/16 09:20 RBC 2.80 10^6/uL (3.5-6.1) L 10/26/16 09:20 Hgb 8.1 gm/dL (12.0-16.0) L 10/26/16 09:20 Hct 26.0 % (36.0-48.0) L 10/26/16 09:20 MCV 92.9 fL (80.0-105.0) 10/26/16 09:20 MCH 28.9 pg (25.0-35.0) 10/26/16 09:20 MCHC 31.2 g/dl (31.0-37.0) 10/26/16 09:20 RDW 16.0 % (11.5-14.5) H 10/26/16 09:20 Plt Count 269 10^3/uL (120.0-450.0) 10/26/16 09:20 MPV 10.1 fl (7.0-11.0) 10/26/16 09:20 Gran % 50.1 % (50.0-68.0) 10/26/16 09:20 Lymph % (Auto) 36.2 % (22.0-35.0) H 10/26/16 09:20 [place] % (Auto) 7.6 % (1.0-6.0) H 10/26/16 09:20 Eos % (Auto) 5.8 % (1.5-5.0) H 10/26/16 09:20 Baso % (Auto) 0.3 % (0.0-3.0) 10/26/16 09:20 Gran # 1.98 (1.4-6.5) 10/26/16 09:20 Lymph # 1.4 (1.2-3.4) 10/26/16 09:20 [place] # 0.3 (0.1-0.6) 10/26/16 09:20 Eos # 0.2 (0.0-0.7) 10/26/16 09:20 Baso # 0.01 K/mm3 (0.0-2.0) 10/26/16 09:20 pO2 67 mm/Hg (30-55) H 10/21/16 02:40 VBG pH 7.45 (7.32-7.43) H 10/21/16 02:40 VBG pCO2 38.0 (40-60) L 10/21/16 02:40 VBG HCO3 26.4 mmol/l (21-28) 10/21/16 02:40 VBG Total CO2 27.6 mmol.L (22-28) 10/21/16 02:40 VBG O2 Sat (Calc) 96.5 % (40-65) H 10/21/16 02:40 VBG Base Excess 2.4 mmol/L (0.0-2.0) H 10/21/16 02:40 VBG Potassium 4.2 mmol/L (3.6-5.2) 10/21/16 02:40 Sodium 144.0 mmol/L (132-148) 10/21/16 02:40 Chloride 119.0 mmol/L (98-107) H 10/21/16 02:40 Glucose 77 mg/dl (65-105) 10/21/16 02:40 Lactate 1.2 mmol/L (0.7-2.1) 10/21/16 02:40 FiO2 21.0 % 10/21/16 02:40 Sodium 144 mmol/L (132-148) 10/26/16 09:20 Potassium 4.0 mmol/L (3.6-5.0) 10/26/16 09:20 Chloride 114 mmol/L (95-110) H 10/26/16 09:20 Carbon Dioxide 23 mmol/L (21-33) 10/26/16 09:20 Anion Gap 11 (10-20) 10/26/16 09:20 BUN 21 mg/dL (7-21) 10/26/16 09:20 Creatinine 0.5 mg/dL (0.5-1.4) 10/26/16 09:20 Est GFR ( Amer) > 60 10/26/16 09:20 Est GFR (Non-Af Amer) > 60 10/26/16 09:20 Random Glucose 96 mg/dL (70-110) 10/26/16 09:20 Calcium 8.3 mg/dL (8.4-10.5) L 10/26/16 09:20 Iron 32 ug/dL (45-180) L 10/21/16 03:00 TIBC 181 ug/dL (265-497) L 10/21/16 03:00 % Saturation 18 % (20-55) L 10/21/16 03:00 Ferritin 383.0 ng/mL 10/21/16 03:00 Total Bilirubin 0.1 mg/dL (0.2-1.3) L 10/26/16 09:20 AST 25 U/L (15-39) 10/26/16 09:20 ALT 30 U/L (7-56) 10/26/16 09:20 Alkaline Phosphatase 96 U/L (38-133) 10/26/16 09:20 Total Protein 6.5 g/dL (5.8-8.3) 10/26/16 09:20 Albumin 2.7 g/dL (3.0-4.8) L 10/26/16 09:20 Globulin 3.8 gm/dL 10/26/16 09:20 Albumin/Globulin Ratio 0.7 (1.1-1.8) L 10/26/16 09:20 Vitamin B12 744 pg/mL (239-931) 10/21/16 03:00 Folate > 20.0 ng/mL 10/21/16 03:00 Procalcitonin < 0.05 NG/ML (0.19-0.49) L 10/21/16 03:00 Venous Blood Potassium 4.2 mmol/L (3.6-5.2) 10/21/16 02:40 Urine Color Yellow (YELLOW) 10/21/16 13:25 Urine Appearance Clear (CLEAR) 10/21/16 13:25 Urine pH 7.0 (4.7-8.0) 10/21/16 13:25 Ur Specific [place] 1.015 (1.005-1.035) 10/21/16 13:25 Urine Protein Negative mg/dL (<30 mg/dL) 10/21/16 13:25 Urine Glucose (UA) Negative mg/dL (NEGATIVE) 10/21/16 13:25 Urine Ketones Negative mg/dL (NEGATIVE) 10/21/16 13:25 Urine Blood Negative (NEGATIVE) 10/21/16 13:25 Urine Nitrate Positive (NEGATIVE) H 10/21/16 13:25 Urine Bilirubin Negative (NEGATIVE) 10/21/16 13:25 Urine Urobilinogen 0.2 E.U./dL (<1 E.U./dL) 10/21/16 13:25 Ur Leukocyte Esterase Moderate Brijesh/uL (NEGATIVE) H 10/21/16 13:25 Urine RBC Negative /hpf (0-2) 10/21/16 13:25 Urine WBC 1 - 3 /hpf (0-6) 10/21/16 13:25 Ur Epithelial Cells 0 - 2 /hpf (0-5) 10/21/16 13:25 Urine Bacteria Mod (NEG) 10/21/16 13:25 Stool Leukocytes, Qual Negative (NEGATIVE) 10/24/16 00:00 Vancomycin Trough 49.7 ug/mL (5.0-10.0) H* 10/26/16 09:20 - Hospital Course Hospital Course: 86Y F with history of eng stage Parkinson's with chronic contractions to all extremities, HTN, COPD, TIA, Peg tube placement presented to the ED by aid of family with c/o diarrhea and weight loss x 1 week. The patient was seen by her PMD, Dr. Gutierrez during a house call and based on prior lab work was found to have a UTI. She was given Augmentin and Doxycycline at that time and shortly thereafter started having diarrhea. Per family, the antibiotics were stopped at that time and her daughter reported black discharge coming out of the peg tube as well as black stool. In the ED, a hemoccult was done and found to be negative. 12 point ROS was limited due to the patient being non-verbal. However per family she had no fevers, visible chills, nausea, vomiting or appeared short of breath. The daughter also reported that the patient has a sacral decubitus ulcer, which has been having some yellow pus drain for the past few days. The following workup/results/treatment were obtained during the patient's hospital course: 1.Sacral wound * Afebrile, no leukocytosis * Urine culture positive for Klebsiella pneumoniae * Wound culture positive for Klebsiella pneumoniae and enterococcus faecalis * Continue antibiotics as per ID recommendations - Dr. Choudhury * Lactate 1.1 * Air mattress * Continue Santyl on wound and optifoam on pressure ulcers * Surgery consulted - Dr. Chaudhry 2. Bacteremia * Blood cultures pos for gram positive cocci in clusters * Repeat blood culture negative were negative * Patient was on Meropenem and Vancomycin per ID recommendations * Prior to discharge ID recommended no continuation of antibiotics at this time 3. Leukopenia * ANC 1247 previously; * SPEP pending * Heme/onc consulted - Dr. Roach 4. Anemia * No overt signs of blood loss * No signs of upper GI bleed up to the pylorus as per GI * PEG tube was evaluated and found to be functioning appropriately; site was clean, dry and intact; * Hemeoccult negative * Patient started on venofer per hematology recommendations * Continue to monitor CBC, will transfuse if Hgb <7 * GI consulted - Dr. Christine * Heme/onc consulted - Dr. Roach 5. HTN * Continue clonidine 6. Parkinsons disease * Continue Ropinerole and Baclofen 7. GI/DVT prophylaxis * protonix/SCDs Patient was subsequently discharged to [facility] for further care. Family was aware of plan and agreeable. Discharge Exam - Head Exam Head Exam: ATRAUMATIC, NORMOCEPHALIC - Eye Exam Eye Exam: EOMI, PERRL - ENT Exam ENT Exam: Mucous Membranes Dry - Respiratory Exam Respiratory Exam: Clear to PA & Lateral. absent: Rales, Rhonchi, Wheezes - Cardiovascular Exam Cardiovascular Exam: RRR, +S1, +S2. absent: Gallop, JVD, Rubs - GI/Abdominal Exam GI & Abdominal Exam: Soft. absent: Distended, Firm, Rebound, Tenderness Additional comments: peg tube in place, functioning appropriately, site is clean dry and intact - Extremities Exam Additional comments: contractions of all extremities - Neurological Exam Additional comments: non-verbal, not oriented x3 - Skin Additional comments: stage 3-4 sacral decubitus ulcer Discharge Plan - Follow Up Plan Condition: GOOD Disposition: TRANSF TO SNF Instructions: Pressure Ulcer (DC) Additional Instructions: 1. Follow up with your primary doctor, Dr. Gutierrez 1-2 weeks post discharge from [facility] <Juan M Gutierrez - Last Filed: 11/29/16 08:30> Provider - Provider Date of Admission: 10/21/16 02:50 Attending physician: Juan M Gutierrez MD Hospital Course - Lab Results Lab Results: Micro Results 10/23/16 09:11 Blood-Venous Blood Culture - Final NO GROWTH AFTER 5 DAYS 10/23/16 09:11 Blood-Venous Gram Stain - Final 10/21/16 05:15 Blood S.aureus & Coag-Neg Staph PNA FISH - Final 10/21/16 05:15 Blood Blood Culture - Final Coagulase Neg Staphylococcus 10/21/16 05:15 Blood Gram Stain - Final 10/21/16 13:25 Urine,B[place]man Urine Culture - Final Klebsiella Pneumoniae Ssp Pneu 10/21/16 04:45 Decubitus - Back Gram Stain - Final 10/21/16 04:45 Decubitus - Back Wound Culture - Final Klebsiella Pneumoniae Ssp Pneu Enterococcus Faecalis Most Recent Lab Values WBC 4.0 10^3/ul (4.5-11.0) L 10/26/16 09:20 RBC 2.80 10^6/uL (3.5-6.1) L 10/26/16 09:20 Hgb 8.1 gm/dL (12.0-16.0) L 10/26/16 09:20 Hct 26.0 % (36.0-48.0) L 10/26/16 09:20 MCV 92.9 fL (80.0-105.0) 10/26/16 09:20 MCH 28.9 pg (25.0-35.0) 10/26/16 09:20 MCHC 31.2 g/dl (31.0-37.0) 10/26/16 09:20 RDW 16.0 % (11.5-14.5) H 10/26/16 09:20 Plt Count 269 10^3/uL (120.0-450.0) 10/26/16 09:20 MPV 10.1 fl (7.0-11.0) 10/26/16 09:20 Gran % 50.1 % (50.0-68.0) 10/26/16 09:20 Lymph % (Auto) 36.2 % (22.0-35.0) H 10/26/16 09:20 [place] % (Auto) 7.6 % (1.0-6.0) H 10/26/16 09:20 Eos % (Auto) 5.8 % (1.5-5.0) H 10/26/16 09:20 Baso % (Auto) 0.3 % (0.0-3.0) 10/26/16 09:20 Gran # 1.98 (1.4-6.5) 10/26/16 09:20 Lymph # 1.4 (1.2-3.4) 10/26/16 09:20 [place] # 0.3 (0.1-0.6) 10/26/16 09:20 Eos # 0.2 (0.0-0.7) 10/26/16 09:20 Baso # 0.01 K/mm3 (0.0-2.0) 10/26/16 09:20 pO2 67 mm/Hg (30-55) H 10/21/16 02:40 VBG pH 7.45 (7.32-7.43) H 10/21/16 02:40 VBG pCO2 38.0 (40-60) L 10/21/16 02:40 VBG HCO3 26.4 mmol/l (21-28) 10/21/16 02:40 VBG Total CO2 27.6 mmol.L (22-28) 10/21/16 02:40 VBG O2 Sat (Calc) 96.5 % (40-65) H 10/21/16 02:40 VBG Base Excess 2.4 mmol/L (0.0-2.0) H 10/21/16 02:40 VBG Potassium 4.2 mmol/L (3.6-5.2) 10/21/16 02:40 Sodium 144.0 mmol/L (132-148) 10/21/16 02:40 Chloride 119.0 mmol/L (98-107) H 10/21/16 02:40 Glucose 77 mg/dl (65-105) 10/21/16 02:40 Lactate 1.2 mmol/L (0.7-2.1) 10/21/16 02:40 FiO2 21.0 % 10/21/16 02:40 Sodium 144 mmol/L (132-148) 10/26/16 09:20 Potassium 4.0 mmol/L (3.6-5.0) 10/26/16 09:20 Chloride 114 mmol/L (95-110) H 10/26/16 09:20 Carbon Dioxide 23 mmol/L (21-33) 10/26/16 09:20 Anion Gap 11 (10-20) 10/26/16 09:20 BUN 21 mg/dL (7-21) 10/26/16 09:20 Creatinine 0.5 mg/dL (0.5-1.4) 10/26/16 09:20 Est GFR ( Amer) > 60 10/26/16 09:20 Est GFR (Non-Af Amer) > 60 10/26/16 09:20 Random Glucose 96 mg/dL (70-110) 10/26/16 09:20 Calcium 8.3 mg/dL (8.4-10.5) L 10/26/16 09:20 Iron 32 ug/dL (45-180) L 10/21/16 03:00 TIBC 181 ug/dL (265-497) L 10/21/16 03:00 % Saturation 18 % (20-55) L 10/21/16 03:00 Ferritin 383.0 ng/mL 10/21/16 03:00 Total Bilirubin 0.1 mg/dL (0.2-1.3) L 10/26/16 09:20 AST 25 U/L (15-39) 10/26/16 09:20 ALT 30 U/L (7-56) 10/26/16 09:20 Alkaline Phosphatase 96 U/L (38-133) 10/26/16 09:20 Total Protein 6.5 g/dL (5.8-8.3) 10/26/16 09:20 Albumin 2.7 g/dL (3.0-4.8) L 10/26/16 09:20 Globulin 3.8 gm/dL 10/26/16 09:20 Albumin/Globulin Ratio 0.7 (1.1-1.8) L 10/26/16 09:20 Vitamin B12 744 pg/mL (239-931) 10/21/16 03:00 Folate > 20.0 ng/mL 10/21/16 03:00 Procalcitonin < 0.05 NG/ML (0.19-0.49) L 10/21/16 03:00 Venous Blood Potassium 4.2 mmol/L (3.6-5.2) 10/21/16 02:40 Urine Color Yellow (YELLOW) 10/21/16 13:25 Urine Appearance Clear (CLEAR) 10/21/16 13:25 Urine pH 7.0 (4.7-8.0) 10/21/16 13:25 Ur Specific [place] 1.015 (1.005-1.035) 10/21/16 13:25 Urine Protein Negative mg/dL (<30 mg/dL) 10/21/16 13:25 Urine Glucose (UA) Negative mg/dL (NEGATIVE) 10/21/16 13:25 Urine Ketones Negative mg/dL (NEGATIVE) 10/21/16 13:25 Urine Blood Negative (NEGATIVE) 10/21/16 13:25 Urine Nitrate Positive (NEGATIVE) H 10/21/16 13:25 Urine Bilirubin Negative (NEGATIVE) 10/21/16 13:25 Urine Urobilinogen 0.2 E.U./dL (<1 E.U./dL) 10/21/16 13:25 Ur Leukocyte Esterase Moderate Brijesh/uL (NEGATIVE) H 10/21/16 13:25 Urine RBC Negative /hpf (0-2) 10/21/16 13:25 Urine WBC 1 - 3 /hpf (0-6) 10/21/16 13:25 Ur Epithelial Cells 0 - 2 /hpf (0-5) 10/21/16 13:25 Urine Bacteria Mod (NEG) 10/21/16 13:25 Stool Leukocytes, Qual Negative (NEGATIVE) 10/24/16 00:00 Vancomycin Trough 49.7 ug/mL (5.0-10.0) H* 10/26/16 09:20 Attending/Attestation - Attestation I have personally seen and examined this patient.: Yes I have fully participated in the care of the patient.: Yes I have reviewed all pertinent clinical information, including history, physical exam and plan: Yes Notes (Text): 11/29/16 08:30 Medical record note made by the resident after discussion with my direction and input after the patient was personally seen and examined by me. I have reviewed the chart and agree that the record reflects my personal performance of history, physical, data review and course for the patient that I have planned.
--- NOTE | 2016-10-26 18:09 | PN ---
DATE: 10/26/2016 SUBJECTIVE: The patient was seen earlier this morning in room 370, bed 1. No fevers, no chills and contracted, bedridden and unresponsive. PHYSICAL EXAMINATION: VITAL SIGNS: Temperature is 98, blood pressure is 130/60, respiratory rate 20. HEENT: Unremarkable. NECK: Supple. LUNGS: Have decreased breath sounds. HEART: Normal S1, S2. ABDOMEN: Soft, nontender. EXTREMITIES: Decubitus ulcer is noted. LABORATORY DATA: Reveals a white count of 4, hemoglobin of 8. Chemistries reveal the BUN of 21, cre atinine of 0.5. Procalcitonin is noted less than 0.05. ASSESSMENT AND PLAN: The patient is an 86-year-old female with infected decubitus ulcer, gram-positi ve cocci bacteremia, most likely contamination, contracted, bedridden, with extended-spectrum beta-la ctamase Klebsiella in the urine and the decubitus ulcer. She has had a short course of antibiotics. Since the patient is bedridden, contracted, in a vegetative state and cachectic, end-stage, with a B VT of 14, no repair benefit in treating with long-term antibiotics. The case was discussed with caring for the patient. The patient may be discharged from an infectious point of view with lo chris wound care and no further antibiotics would be beneficial to this patient toxicity be nefit of treating any antibiotics. Aristeo Choudhury MD cc: [phone] TT: 10/26/2016 18:08:55 Confirmation # [id number] Dictation # [id number] dn
== END 2016-10-26 12:58 | DRG 592 ==
LOC: ED 23:06 → ERH 10-21 02:50 → 3RSO 10-21 05:38
PROVIDERS: ADMIT Internal Medicine; ATTEND Internal Medicine
DX: L89.154 Pressure ulcer of sacral region, stage 4 (principal); R40.3 Persistent vegetative state; R64 Cachexia; R78.81 Bacteremia; I11.0 Hypertensive heart disease with heart failure; L89.893 Pressure ulcer of other site, stage 3; I50.9 Heart failure, unspecified; B96.1 Klebsiella pneumoniae [K. pneumoniae] as the cause of diseases classified elsewhere; K94.23 Gastrostomy malfunction; G20 Parkinson's disease; N39.0 Urinary tract infection, site not specified; L03.90 Cellulitis, unspecified; Z68.1 Body mass index [BMI] 19.9 or less, adult; L89.214 Pressure ulcer of right hip, stage 4; F02.80 Dementia in other diseases classified elsewhere, unspecified severity, without behavioral disturbance, psychotic disturbance, mood disturbance, and anxiety; I25.10 Atherosclerotic heart disease of native coronary artery without angina pectoris; J44.9 Chronic obstructive pulmonary disease, unspecified; Z86.73 Personal history of transient ischemic attack (TIA), and cerebral infarction without residual deficits; E61.1 Iron deficiency; D72.819 Decreased white blood cell count, unspecified; I48.91 Unspecified atrial fibrillation; D64.9 Anemia, unspecified; M81.0 Age-related osteoporosis without current pathological fracture; Z74.01 Bed confinement status; Z79.82 Long term (current) use of aspirin; Z80.0 Family history of malignant neoplasm of digestive organs; Z82.49 Family history of ischemic heart disease and other diseases of the circulatory system; Z86.010 Personal history of colon polyps; B95.2 Enterococcus as the cause of diseases classified elsewhere; Z86.14 Personal history of Methicillin resistant Staphylococcus aureus infection; Z87.01 Personal history of pneumonia (recurrent); Z87.440 Personal history of urinary (tract) infections; Z87.891 Personal history of nicotine dependence; Z87.19 Personal history of other diseases of the digestive system; R32 Unspecified urinary incontinence; Z88.2 Allergy status to sulfonamides; M24.50 Contracture, unspecified joint; H26.9 Unspecified cataract; L89.891 Pressure ulcer of other site, stage 1; Z87.81 Personal history of (healed) traumatic fracture; D46.9 Myelodysplastic syndrome, unspecified; B96.20 Unspecified Escherichia coli [E. coli] as the cause of diseases classified elsewhere

== ENCOUNTER 2017-04-25 08:34 | Day surgery (SDC) | payer MEDICARE ==
[2017-04-25] MEDS ORDERED: Bacitracin 500 Units/gm Oint Foilpak UD ONE (09:31)
[2017-04-25 13:45] VITALS: BP 150/81; PULSE 58; RESP 20; TEMP 97; O2SAT 98
== END 2017-04-25 10:40 | disposition home or self-care (01) ==
LOC: OPSURG 08:34
PROVIDERS: ATTEND Internal Medicine Gastroenterology
DX: K94.23 Gastrostomy malfunction (principal); Y83.3 Surgical operation with formation of external stoma as the cause of abnormal reaction of the patient, or of later complication, without mention of misadventure at the time of the procedure; I10 Essential (primary) hypertension; Z86.73 Personal history of transient ischemic attack (TIA), and cerebral infarction without residual deficits

== ENCOUNTER 2017-05-14 19:07 | Observation (INO) | payer MEDICAID, MEDICARE ==
[2017-05-14 19:12] VITALS: BMI 16.8
--- NOTE | 2017-05-14 20:20 | ED PDOC ---
Arrival/HPI - General Chief Complaint: Abdominal Pain Time Seen by Provider: 05/14/17 19:13 Historian: Patient, Family (daughter) - History of Present Illness Narrative History of Present Illness (Text): 05/14/17 20:10 A 86 year old female, whose past medical history includes parkinson's, Chronic contracture of all extremities, presents to the emergency department for evaluation of dislodge peg tube. According to daughter, patient had tube dislodged at home and has had this happen before in the past. Patient denies of any fever, chills, vomiting, diarrhea, abdominal pain, or any other complaints. PMD: Dr. Barth Past Medical History - Provider Review Nursing Documentation Reviewed: Yes - Infectious Disease Hx of Infectious Diseases: None - Tetanus Immunization Tetanus Immunization: Unknown - Reproductive Menopause: Yes - Cardiac Hx Cardiac Arrhythmia: Yes (current; atrial fibrillation.) Hx Congestive Heart Failure: Yes Hx Hypertension: Yes Hx Peripheral Edema: No - Pulmonary Hx Pneumonia: Yes (x3) - Neurological Hx Dementia: Yes Hx Parkinson's Disease: Yes Hx Transient Ischemic Attacks (TIA): Yes - HEENT Hx HEENT Disorder: Yes Hx Cataracts: Yes (lt eye) - Renal Hx Renal Disorder: No - Endocrine/Metabolic Hx Endocrine Disorders: No - Hematological/Oncological Hx Blood Transfusions: Yes Hx Blood Transfusion Reaction: No - Integumentary Hx Dermatological Disorder: No - Musculoskeletal/Rheumatological Hx Fractures: Yes (Left Foot Fx; 2000.) Hx Osteoporosis: Yes - Gastrointestinal Hx Pancreatitis: Yes (current.) - Genitourinary/Gynecological Hx Genitourinary Disorders: Yes Hx Incontinence: Yes - Psychiatric Hx Depression: No Hx Substance Use: No - Surgical History Other/Comment: Feeding tube insertion - Anesthesia Hx Anesthesia Reactions: No Hx Malignant Hyperthermia: No - Suicidal Assessment Feels Threatened In Home Enviroment: No Family/Social History - Physician Review Nursing Documentation Reviewed: Yes Family/Social History: No Known Family HX Smoking Status: Never Smoked Hx Alcohol Use: No Hx Substance Use: No Hx Substance Use Treatment: No Allergies/Home Meds Allergies/Adverse Reactions: Allergies Sulfa (Sulfonamide Antibiotics) Allergy (Verified 05/14/17 19:12) SWELLING Home Medications: Home Meds Medication Instructions Recorded Confirmed Aspirin [Jordana Chewable Aspirin] 81 mg PEG DAILY 03/26/13 05/14/17 Baclofen [Lioresal] 10 mg PEG TID 02/14/16 05/14/17 Ropinirole HCl [Requip] 0.5 mg PO TID 04/25/17 05/14/17 Zinc Amino Acid Chelate [Zinc 50 mg PO DAILY 04/25/17 05/14/17 Chelated] cloNIDine [clonidine HCl] 0.1 mg PO DAILY 04/25/17 05/14/17 Review of Systems - Physician Review All systems were reviewed & negative as marked: Yes - Review of Systems Constitutional: absent: Fevers, Night Sweats Gastrointestinal: absent: Abdominal Pain, Diarrhea, Vomiting Physical Exam Vital Signs Reviewed: Yes Vital Signs Temp Pulse Resp BP Pulse Ox 05/14/17 21:56 98.0 F 98 H 17 111/77 99 05/14/17 19:37 98.1 F 100 H 18 119/76 100 Temperature: Afebrile Blood Pressure: Normal Pulse: Regular Respiratory Rate: Normal Appearance: Positive for: Well-Appearing Pain Distress: None Mental Status: Positive for: Alert and Oriented X 3 - Systems Exam Head: Present: Atraumatic, Normocephalic Pupils: Present: PERRL Extroacular Muscles: Present: EOMI Conjunctiva: Present: Normal Mouth: Present: Moist Mucous Membranes Neck: Present: Normal Range of Motion Respiratory/Chest: Present: Clear to Auscultation, Good Air Exchange. No: Respiratory Distress, Accessory Muscle Use Cardiovascular: Present: Regular Rate and Rhythm, Normal S1, S2. No: Murmurs Abdomen: Present: Other (ostomy site patent, no erythema) Back: Present: Normal Inspection Upper Extremity: Present: Other (positive contractions) Lower Extremity: Present: Other (positive contractions) Neurological: Present: GCS=15, CN II-XII Intact, Speech Normal Skin: Present: Warm, Dry, Normal Color. No: Rashes Medical Decision Making ED Course and Treatment: 05/14/17 20:15 Impression: 86 year old female with peg tube dislodgement. Plan: -- Labs -- Reassess and disposition Prior Visits: Notes and results from previous visits were reviewed. Patient was last seen in the emergency department on 10/20/2016 for worsening sacral wound. Patient was admitted. Progress Notes: 05/14/17 20:[address] Brito associate .Request temporary Gonzales placement /admission for PEG. Area of abdomen cleansed with saline, using sterile technique 18 gonzales catheter (flushed and inflated, had no difficulty placing gonzales tubing)was placed. Case discussed with Dr. Barth, whom accepts patient under service.+ - Medication Orders Current Medication Orders: Sodium Chloride (Sodium Chloride 0.9%) 1,000 mls @ 100 mls/hr IV .Q10H STA Stop: 05/15/17 08:06 - Scribe Statement The provider has reviewed the documentation as recorded by the Alina Bajwa Provider Scribe Attestation: All medical record entries made by the Scribe were at my direction and personally dictated by me. I have reviewed the chart and agree that the record accurately reflects my personal performance of the history, physical exam, medical decision making, and the department course for this patient. I have also personally directed, reviewed, and agree with the discharge instructions and disposition. Disposition/Present on Arrival - Present on Arrival Any Indicators Present on Arrival: No History of DVT/PE: No History of Uncontrolled Diabetes: No Urinary Catheter: No History of Decub. Ulcer: No History Surgical Site Infection Following: None - Disposition Have Diagnosis and Disposition been Completed?: Yes Diagnosis: Dislodged gastrostomy tube Disposition: HOSPITALIZED Disposition Time: 20:15 Patient Plan: Observation Patient Problems: Current Active Problems Problem Status Onset Dislodged gastrostomy tube Acute Condition: STABLE
[2017-05-14 21:22] LABS: HEMATOCRIT 35.2 % (36.0-48.0); MEAN CELL VOLUME 89.3 fl (80.0-105.0); MEAN CORPUSCULAR HEMOGLOBIN 28.7 pg (25.0-35.0); MEAN CORPUSCULAR HGB CONC 32.1 g/dl (31.0-37.0); MEAN PLATELET VOLUME 9.7 fl (7.0-11.0); RED CELL DISTRIBUTION WIDTH 14.7 % (11.5-14.5); WHITE BLOOD COUNT 4.7 10^3/ul (4.5-11.0)
[2017-05-14 21:31] LABS: ALB/GLOB RATIO 0.8 (1.1-1.8); ALKALINE PHOSPHATASE 88 U/L (38-126); ALT/SGPT 20 U/L (7-56); AST/SGOT 27 U/L (14-36); BILIRUBIN,TOTAL 0.4 mg/dL (0.2-1.3); BLOOD UREA NITROGEN 16 mg/dL (7-21); CALCIUM 10.1 mg/dL (8.4-10.5); CARBON DIOXIDE 30 mmol/L (21-33); CHLORIDE 106 mmol/L (98-107); GFR AFRICAN-AMERICAN > 60; GLUCOSE,RANDOM 91 mg/dL (70-110); SODIUM 143 mmol/L (132-148); TOTAL PROTEIN 8.3 g/dL (5.8-8.3)
[2017-05-14] MEDS ORDERED: Sodium Chloride 0.9% 1,000 ML IV STA (22:07)
[2017-05-14 22:21] VITALS: RESP 20
--- NOTE | 2017-05-15 07:51 | CP.PCM.CON ---
<AriadnaRachell - Last Filed: 05/15/17 09:22> History of Present Illness - History of Present Illness History of Present Illness: Rachell Rosenthal DO PGY1 - GI Consult Note for Dr. 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 Patient is nonverbal, so history was obtained by chart review. Patient was brought in by daughter, who said that tube had dislodged at home, which has happened multiple times in the past. Daughter had denied any fever, chills, vomiting, hematemesis, melena, or apparent abdominal pain. Patient had this PEG last placed in 04/25/[address] Huang. In the ER, a 18 Fr gonzales was placed. ROS unobtainable due to patient's nonverbal state PMH: As above PSH: Peg revision 03/2017, originally placed in 2007 Soc: Light tobacco use in past, no alcohol or drug use. Has visiting nurse take care of her FH: No documented history of gastric or colon CA All: Sulfa Past Patient History - Infectious Disease Hx of Infectious Diseases: None - Tetanus Immunizations Tetanus Immunization: Unknown - Past Social History Smoking Status: Never Smoked - CARDIAC Hx Cardia Arrhythmia: Yes (current; atrial fibrillation.) Hx Congestive Heart Failure: Yes Hx Hypertension: Yes Hx Peripheral Edema: No - PULMONARY Hx Pneumonia: Yes (x3) - NEUROLOGICAL Hx Dementia: Yes Hx Parkinson's Disease: Yes Hx Transient Ischemic Attacks (TIA): Yes - HEENT Hx HEENT Problems: Yes Hx Cataracts: Yes (lt eye) - RENAL Hx Chronic Kidney Disease: No - ENDOCRINE/METABOLIC Hx Endocrine Disorders: No - HEMATOLOGICAL/ONCOLOGICAL Hx Blood Transfusions: Yes Hx Blood Transfusion Reaction: No - INTEGUMENTARY Hx Dermatological Problems: No - MUSCULOSKELETAL/RHEUMATOLOGICAL Hx Fractures: Yes (Left Foot Fx; 2000.) Hx Osteoporosis: Yes - GASTROINTESTINAL Hx Pancreatitis: Yes (current.) - GENITOURINARY/GYNECOLOGICAL Hx Genitourinary Disorders: Yes Hx Incontinence: Yes - PSYCHIATRIC Hx Depression: No Hx Substance Use: No - SURGICAL HISTORY Other/Comment: Feeding tube insertion - ANESTHESIA Hx Anesthesia Reactions: No Hx Malignant Hyperthermia: No Meds Allergies/Adverse Reactions: Allergies Allergy/AdvReac Type Severity Reaction Status Date / Time Sulfa (Sulfonamide Allergy SWELLING Verified 05/14/17 19:12 Antibiotics) - Medications Medications: Current Medications Sodium Chloride (Sodium Chloride 0.9%) 1,000 mls @ 100 mls/hr IV .Q10H STA Stop: 05/15/17 08:06 Physical Exam - Constitutional Appears: Non-toxic, No Acute Distress, Cachectic, Chronically Ill - Head Exam Head Exam: ATRAUMATIC, NORMOCEPHALIC - Eye Exam Eye Exam: EOMI, Normal appearance. absent: Scleral icterus - ENT Exam ENT Exam: Mucous Membranes Moist - Respiratory Exam Respiratory Exam: Clear to Auscultation Bilateral, NORMAL BREATHING PATTERN - Cardiovascular Exam Cardiovascular Exam: REGULAR RHYTHM, +S1, +S2 - GI/Abdominal Exam GI & Abdominal Exam: Normal Bowel Sounds, Soft. absent: Distended, Firm, Guarding, Organomegaly, Rebound, Rigid, Tenderness Additional comments: 18fr gonzales in prior PEG site, appears clean, dry, intact. No purulence, fluctuance, drainage, bleeding, erythema, or edema - Extremities Exam Additional comments: All four limbs contracted, extreme resistence to passive motion - Neurological Exam Additional comments: Awake, opens eyes and orients to verbal stimuli, absent gaze, nonverbal - Psychiatric Exam Psychiatric exam: Normal Affect, Normal Mood - Skin Skin Exam: Dry, Intact Results - Vital Signs Recent Vital Signs: Last Vital Signs Temp 98 F 05/14/17 23:00 Pulse 93 H 05/14/17 23:00 Resp 20 05/14/17 23:00 BP 133/86 05/14/17 23:00 Pulse Ox 100 05/14/17 22:10 - Labs Result Diagrams: 05/14/17 21:10 05/14/17 21:10 Labs: Laboratory Results - last 24 hr 05/14/17 05/14/17 21:10 21:10 WBC 4.7 RBC 3.94 Hgb 11.3 L Hct 35.2 L MCV 89.3 MCH 28.7 MCHC 32.1 RDW 14.7 H Plt Count 356 MPV 9.7 Sodium 143 Potassium 4.0 Chloride 106 Carbon Dioxide 30 Anion Gap 12 BUN 16 Creatinine 0.5 L Est GFR ( Amer) > 60 Est GFR (Non-Af Amer) > 60 Random Glucose 91 Calcium 10.1 Total Bilirubin 0.4 AST 27 ALT 20 Alkaline Phosphatase 88 Total Protein 8.3 Albumin 3.6 Globulin 4.7 Albumin/Globulin Ratio 0.8 L Assessment & Plan - Assessment and Plan (Free Text) Assessment: 86 yo F with PMH significant for end stage parkinson disease with chronic contractures in all four extremeties, with PEG since 2007, last revised 03/2017 when it was clogged, here for dislodged peg tube >Patient is hemodynamically stable, with H/H at baseline, no reports of emesis, hematemesis, melena, fever, or chills >Prior peg site appears clean, dry, and intact, with no signs of infection. Prior peg was 20fr, currently, 18fr gonzales in place >Bedside peg replacement today >Will continue to follow clinical course Patient discussed and reviewed with attending <Tr Christine - Last Filed: 05/15/17 10:00> Meds - Medications Medications: Current Medications Baclofen (Lioresal) 10 mg NG TID [facility] Ropinirole HCl (Requip) 0.5 mg PO TID [facility] Results - Vital Signs Recent Vital Signs: Last Vital Signs Temp 98.5 F 05/15/17 07:30 Pulse 74 05/15/17 07:30 Resp 20 05/15/17 07:30 BP 111/72 05/15/17 07:30 Pulse Ox 93 L 05/15/17 07:30 - Labs Result Diagrams: 05/14/17 21:10 05/14/17 21:10 Labs: Laboratory Results - last 24 hr 05/14/17 05/14/17 21:10 21:10 WBC 4.7 RBC 3.94 Hgb 11.3 L Hct 35.2 L MCV 89.3 MCH 28.7 MCHC 32.1 RDW 14.7 H Plt Count 356 MPV 9.7 Sodium 143 Potassium 4.0 Chloride 106 Carbon Dioxide 30 Anion Gap 12 BUN 16 Creatinine 0.5 L Est GFR ( Amer) > 60 Est GFR (Non-Af Amer) > 60 Random Glucose 91 Calcium 10.1 Total Bilirubin 0.4 AST 27 ALT 20 Alkaline Phosphatase 88 Total Protein 8.3 Albumin 3.6 Globulin 4.7 Albumin/Globulin Ratio 0.8 L Attending/Attestation - Attestation I have personally seen and examined this patient.: Yes I have fully participated in the care of the patient.: Yes I have reviewed all pertinent clinical information: Yes Notes (Text): 05/15/17 09:59 86 year old female with h/o Parkinson's disease, contractures, h/o PEG admitted after dislodged PEG. 1. Dislodged PEG Plan -will replace PEG at bedside
[2017-05-15 08:23] VITALS: BP 111/72; PULSE 74; TEMP 98.5; O2SAT 93
[2017-05-15] MEDS ORDERED: ROPINIROLE HCL 0.5 MG PO SCH (10:00)
--- NOTE | 2017-05-15 10:02 | PCM.SURG1 ---
Surgeon's Initial Post Op Note - Surgeon's Notes Surgeon: Tr Christine MD Reproduction Specialist: Queenie Olivia Type of Anesthesia: None Pre-Operative Diagnosis: Dislodged PEG Operative Findings: Dislodged PEG, Bergman in place. Bergman removed. 20 Fr replacemend PEG inserted and balloon instilled with 6 cc saline and bumper tightened to ~1 cm. Flushes easily Post-Operative Diagnosis: Dislodged PEG Operation Performed: PEG Replacement Specimen/Specimens Removed: Bergman Estimated Blood Loss: EBL {In ML}: 0 Blood Products Given: N/A Drains Used: No Drains Post-Op Condition: Good Date of Surgery/Procedure: 05/15/17 Time of Surgery/Procedure: 10:02
--- NOTE | 2017-05-15 16:40 | CP.PCM.CON ---
History of Present Illness - History of Present Illness History of Present Illness: Surgery Consult Note for Dr. Chaudhry HPI: pt is a 86 year old female with PMHx of Parkinson's, dementia, chronic contracture of all extremities, Atrial Fibrillation, CHF, HTN presented to [facility] ED for evaluation of a dislodged peg tube. Pt is non verbal so history obtained via chart review. Surgery consulted for sacral decubitus ulcer, gluteal ulcer, and left heel ulcer PMD: Dr. Barth PMHx: Parkinson's, dementia, chronic contracture of all extremities, Atrial Fibrillation, CHF, HTN Family History: no known family history Allergies: Sulfa Antibiotics; reaction - swelling Social History: never smoked, no alcohol use, no illicit drug use Medications: Aspirin, Baclofen, Ropinirole, Zinc Amino Acid, Clonidine Review of Systems - Review of Systems Systems not reviewed;Unavailable: Other (Patient is non communicative ) Past Patient History - Infectious Disease Hx of Infectious Diseases: None - Tetanus Immunizations Tetanus Immunization: Unknown - Past Social History Smoking Status: Never Smoked - CARDIAC Hx Cardia Arrhythmia: Yes (current; atrial fibrillation.) Hx Congestive Heart Failure: Yes Hx Hypertension: Yes Hx Peripheral Edema: No - PULMONARY Hx Pneumonia: Yes (x3) - NEUROLOGICAL Hx Dementia: Yes Hx Parkinson's Disease: Yes Hx Transient Ischemic Attacks (TIA): Yes - HEENT Hx HEENT Problems: Yes Hx Cataracts: Yes (lt eye) - RENAL Hx Chronic Kidney Disease: No - ENDOCRINE/METABOLIC Hx Endocrine Disorders: No - HEMATOLOGICAL/ONCOLOGICAL Hx Blood Transfusions: Yes Hx Blood Transfusion Reaction: No - INTEGUMENTARY Hx Dermatological Problems: No - MUSCULOSKELETAL/RHEUMATOLOGICAL Hx Fractures: Yes (Left Foot Fx; 2000.) Hx Osteoporosis: Yes - GASTROINTESTINAL Hx Pancreatitis: Yes (current.) - GENITOURINARY/GYNECOLOGICAL Hx Genitourinary Disorders: Yes Hx Incontinence: Yes - PSYCHIATRIC Hx Depression: No Hx Substance Use: No - SURGICAL HISTORY Other/Comment: Feeding tube insertion - ANESTHESIA Hx Anesthesia Reactions: No Hx Malignant Hyperthermia: No Meds Home Medications: Home Medication List Medication Instructions Recorded Confirmed Type Collagenase [Santyl] 1 gm TOP DAILY #30 tube 05/15/17 Rx Allergies/Adverse Reactions: Allergies Allergy/AdvReac Type Severity Reaction Status Date / Time Sulfa (Sulfonamide Allergy SWELLING Verified 05/14/17 19:12 Antibiotics) - Medications Medications: Current Medications Baclofen (Lioresal) 10 mg NG TID [facility] Last Admin: 05/15/17 13:17 Dose: 10 mg Collagenase (Santyl) 0 gm TOP DAILY [facility] Ropinirole HCl (Requip) 0.5 mg PO TID [facility] Last Admin: 05/15/17 13:17 Dose: 0.5 mg Physical Exam - Constitutional Appears: No Acute Distress Additional comments: chronic contracture of all extremities - Head Exam Head Exam: ATRAUMATIC, NORMOCEPHALIC - Eye Exam Eye Exam: Normal appearance - ENT Exam ENT Exam: Mucous Membranes Moist - Respiratory Exam Respiratory Exam: NORMAL BREATHING PATTERN. absent: Accessory Muscle Use, Respiratory Distress - Extremities Exam Additional comments: bilateral upper and lower limbs contracted - Skin Additional comments: sacral decubitus ulcer; stage 4, gluteal ulcer, left heel ulcer Results - Vital Signs Recent Vital Signs: Last Vital Signs Temp 98.5 F 05/15/17 07:30 Pulse 74 05/15/17 07:30 Resp 20 05/15/17 07:30 BP 111/72 05/15/17 07:30 Pulse Ox 93 L 05/15/17 07:30 - Labs Result Diagrams: 05/14/17 21:10 05/14/17 21:10 Labs: Laboratory Results - last 24 hr 05/14/17 05/14/17 21:10 21:10 WBC 4.7 RBC 3.94 Hgb 11.3 L Hct 35.2 L MCV 89.3 MCH 28.7 MCHC 32.1 RDW 14.7 H Plt Count 356 MPV 9.7 Sodium 143 Potassium 4.0 Chloride 106 Carbon Dioxide 30 Anion Gap 12 BUN 16 Creatinine 0.5 L Est GFR ( Amer) > 60 Est GFR (Non-Af Amer) > 60 Random Glucose 91 Calcium 10.1 Total Bilirubin 0.4 AST 27 ALT 20 Alkaline Phosphatase 88 Total Protein 8.3 Albumin 3.6 Globulin 4.7 Albumin/Globulin Ratio 0.8 L Assessment & Plan - Assessment and Plan (Free Text) Assessment: pt is a 86 year old female with PMHx of Parkinson's, dementia, chronic contracture of all extremities, Atrial Fibrillation, CHF, HTN with sacral decubitus ulcers, gluteal ulcer, and left heel ulcer. Surgery was consulted, wounds were evaluated, Santyl to sacral, gluteal, and heel ulcers. Clear to discharge to home from a surgical perspective.
--- NOTE | 2017-05-15 18:43 | HP ---
HISTORY OF PRESENT ILLNESS: I saw Dari in her room in [facility]. Apparently, the feeding tube had come out, it got dislodged, and that she is here for replacement of the feeding tube. I called in Gastroenterology to do that. We put a Bergman catheter in to keep it open until they can replace it. She is an 86-year-old female, who has a dislodged PEG tube, came to the emergency room for placement and put it back in. Hopefully later today, she will be discharged. PAST MEDICAL HISTORY: She has a past medical history of Parkinson, contractures of all four extremities, bed bound, multiple wounds on her skin, atrial fibrillation, congestive heart failure, hypertension, dementia, TIA's, cataract surgeries, and cataract transfusion. She had a left foot fracture in 2000, osteoporosis, pancreatitis history, she is incontinent, she has a feeding tube in place, which came out, needs to be reinserted. FAMILY HISTORY: Hypertension in the family. SOCIAL HISTORY: Never smoked. No alcohol. No drugs. ALLERGIES: SHE HAS ALLERGIES TO BACTRIM, WHICH IS SULFA. MEDICATIONS: She is on aspirin, baclofen, Requip, Zinc, and clonidine for blood pressure. REVIEW OF SYSTEMS: She is nonverbal, but the feeding tube came out. She has multiple skin wounds. PHYSICAL EXAMINATION GENERAL: In no acute distress. She is alert and cannot talk. VITAL SIGNS: She has a 98 temperature, 98 pulse, 17 respiratory rate, 111/77 blood pressure, and 99% O2 saturation on room air. HEENT: Head is atraumatic, normocephalic. Extraocular muscles are intact. Throat is moist. NECK: Supple. HEART: Regular rate. Normal S1 and S2. LUNGS: Decreased breath sounds, but clear to auscultation. ABDOMEN: She is very contorted. She has an osteocyte with a Bergman catheter in place to keep it open. She needs the PEG tube replacement. EXTREMITIES: All four extremities are contracted. No edema. NEUROLOGIC: I thought to do any neurological exam on her. SKIN: Warm and dry with multiple skin ulcers and wounds. Sacral wound, I believe is unstageable. PLAN: She is here for dislodgement of a feeding tube that will be replaced with GI. I called in wound care nurse and surgical evaluation to see if they could do anything before she goes home this afternoon, may be give different treatment with the one she has been getting. More importantly, we will keep her off the wounds. She is on IV fluids, n.p.o. Hopefully, I will put the feeding tube in and will be discharging her later today. She is on observation status, she just came for dislodgement of PEG tube and replacement as she has skin wounds. Yoel Barth DO
--- NOTE | 2017-05-15 19:50 | HP ---
HISTORY OF PRESENT ILLNESS: She came in last night due to feeding tube dislodgement. She is here for replacement of feeding tube. I discussed with emergency room doctor last night. They put a Bergman catheter and it is placed to keep it open until GI can replace it. She also has multiple ulcers on her back. I called the Wound Care and Surgery to take a look at that and hopefully to discharge later this afternoon after we have placed a feeding tube for home care and wound care. PAST MEDICAL HISTORY: She has a past medical history of being 86-year-old with Parkinson disease, chronic contractures, PEG tube placement, atrial fibrillation, CHF, hypertension, dementia, TIAs, cataracts, left foot surgery in 2000, osteoporosis, pancreatitis, incontinence, and feeding tube insertion. FAMILY HISTORY: Hypertension in the family. SOCIAL HISTORY: Never smoked. No drugs. No alcohol. ALLERGIES: SHE IS ALLERGIC TO SULFA. MEDICATIONS: She takes aspirin, baclofen, ReQuip, Zinc, and clonidine for blood pressure. REVIEW OF SYSTEMS: Unable to do review of systems as she is nonverbal. She is bedridden and contracted. PHYSICAL EXAMINATION GENERAL: Her eyes open, looks at me, nonverbal, well appearing, in no acute distress. VITAL SIGNS: She has 98 temperature, 98 pulse, 17 respiratory rate, 111/77 blood pressure, 99% O2 saturation on room air. HEENT: Head is atraumatic, normocephalic. Extraocular muscles intact. Throat is moist. NECK: Supple. HEART: Regular rate. Normal S1 and S2. LUNGS: Decreased breath sounds, but clear to auscultation. ABDOMEN: Soft. Positive bowel sounds. There is a Bergman in place to keep the ostotomy site open for the PEG tube. EXTREMITIES: All four extremities are in contracted state. No edema. SKIN: She has multiple ulcers in the back. She is here for PEG dislodgement and replacement. LABORATORY DATA: She has a 4.7 white count, 11.3 hemoglobin, 35.2 hematocrit with 356 platelets. Sodium 143, potassium 4, BUN 16, creatinine 0.5, GFR is greater than 60, sugar is 91, calcium 7.1, total bilirubin is 0.4. AST is 27, ALT alkaline phosphatase 88, total protein 8.3, and albumin 3.6. She for a feeding tube placement because she got this dislodged with GI. She will be seen by Wound Care nurse and also Dr. Chaudhry, Surgery for advise once she goes home later on today for further wound care and then she will restart the feedings once she goes home. She has multiple wounds, also dislodgement of her feeding tube. Yoel Barth DO MTDD
--- NOTE | 2017-05-16 05:03 | DS ---
HISTORY OF PRESENT ILLNESS: I am hoping she goes home today, she is going for a feeding tube placement, since it got dislodged. Also I called in GI to do that and I called in wound care nurse and Surgery to look at her wounds, may get better treatment once she goes home later today. She is contracted with end-stage dementia and Parkinson's and is bedridden. She is here for PEG tube dislodgment and replacement, wound care evaluation, and she will be discharged later today. Yoel Barth DO
[2017-05-16] MEDS ORDERED: Collagenase 250 Units/gm Ointment(30 gm) TOP SCH (10:00)
== END 2017-05-15 18:59 | disposition home or self-care (01) ==
LOC: ED 19:07 → ERH 20:11 → 5RNO 22:16
PROVIDERS: ADMIT Family Medicine; ATTEND Family Medicine
DX: Z43.1 Encounter for attention to gastrostomy (principal); G20 Parkinson's disease; F02.80 Dementia in other diseases classified elsewhere, unspecified severity, without behavioral disturbance, psychotic disturbance, mood disturbance, and anxiety; L89.154 Pressure ulcer of sacral region, stage 4; Z74.01 Bed confinement status; L97.429 Non-pressure chronic ulcer of left heel and midfoot with unspecified severity; M81.0 Age-related osteoporosis without current pathological fracture; I48.91 Unspecified atrial fibrillation; J44.9 Chronic obstructive pulmonary disease, unspecified; I50.9 Heart failure, unspecified; I11.0 Hypertensive heart disease with heart failure; M24.50 Contracture, unspecified joint; Z79.82 Long term (current) use of aspirin; Z86.73 Personal history of transient ischemic attack (TIA), and cerebral infarction without residual deficits; Z88.2 Allergy status to sulfonamides; Z88.3 Allergy status to other anti-infective agents; Z87.01 Personal history of pneumonia (recurrent); Z82.49 Family history of ischemic heart disease and other diseases of the circulatory system
CPT/HCPCS: 43760; 80053; 85027; 99284; G0378; J7040